=== PATIENT | male | born 1950 | race Caucasian/White ===

== ENCOUNTER 2017-09-14 09:18 | Inpatient (IN) | payer MEDICARE, MEDICAID ==
[~2017-09-14] VITALS: Ht 177.8 cm; Wt 81.3 kg
[2017-09-14] MEDS ORDERED: PROAIR HFA8.5 GM INH (09:25)
[2017-09-14] MEDS ORDERED: ACCUNEB SO1.25 MG/1 INH (09:25)
[2017-09-14 09:26] VITALS: BP 123/82
[2017-09-14] MEDS ORDERED: HYDROCODONE-AP1 EAC6 PO (09:26)
[2017-09-14] MEDS ORDERED: TRAMADOL 50 MG50 MG PO (09:36)
[2017-09-14] MEDS ORDERED: AMBIEN 5 MG TABL5 M1 PO (09:37)
[2017-09-14] MEDS ORDERED: AMITRIPTYLINE H25 M2 PO (09:37)
[2017-09-14 10:04] LABS: ABSOLUTE BASOPHILS 0.1 thou/uL (0.0-0.2); ABSOLUTE EOSINOPHILS 0.1 thou/uL (0.0-0.7); ABSOLUTE LYMPHOCYTES 1.2 thou/uL (0.8-5.3); ABSOLUTE MONOCYTES 0.5 thou/uL (0.0-1.2); ABSOLUTE NEUTROPHILS 3.9 thou/uL (1.6-8.1); BASOPHILS 1.1 %; EOSINOPHILS 2.4 %; HEMATOCRIT 45.2 % (42.0-52.0); HEMOGLOBIN 14.9 gm/dL (14.0-18.0); LYMPHOCYTES 20.8 %; MCH 29.4 pg (26.0-34.0); MCHC 32.9 g/dL (28.0-37.0); MCV 89.3 fL (80.0-100.0); MONOCYTES 8.8 %; MPV 8.4 fl. (7.2-11.1); NUCLEATED RBCS 0 /100WBC; PLATELET COUNT* 215 thou/uL (150-400); POLYS 66.9 %; RBC 5.06 mil/uL (4.50-6.00); RDW-CV 15.6 % (10.5-14.5); WBC 5.9 thou/uL (4.0-11.0)
[2017-09-14 10:11] LABS: ANION GAP 5 mmol/L (7-16); BUN 9 mg/dL (7-18); CALCIUM 8.7 mg/dL (8.5-10.1); CHLORIDE 98 mmol/L (98-107); CO2 34 mmol/L (21-32); CREATININE 0.9 mg/dL (0.6-1.3); GLUCOSE 118 mg/dL (70-99); POTASSIUM 4.4 mmol/L (3.5-5.1); SODIUM 137 mmol/L (136-145)
[2017-09-14 10:22] LABS: ALBUMIN 3.3 g/dL (3.4-5.0); ALKALINE PHOSPHATASE 77 U/L (46-116); NT-PRO BRAIN NAT PEPTIDE 145 pg/mL (<300); SGOT 18 U/L (15-37); SGPT 16 U/L (30-65); TOTAL BILIRUBIN 0.3 mg/dL (<0.1-1.0); TOTAL PROTEIN 7.4 g/dL (6.4-8.2); TROPONIN-I LEVEL <0.06 ng/mL (<0.06)
[2017-09-14 10:37] LABS: BE 5.2 mmol/L (-2 to +3); pH 7.378 (7.340-7.450)
[2017-09-14 10:39] LABS: PCO2 55.6 mmHg (35.0-45.0); PO2 55.1 mmHg (75.0-100.0)
[2017-09-14 11:57] LABS: URINE BILIRUBIN NEGATIVE (Negative); URINE BLOOD NEGATIVE (Negative); URINE CLARITY CLEAR; URINE COLOR YELLOW; URINE GLUCOSE-RANDOM NEGATIVE (Negative); URINE KETONES NEGATIVE (Negative); URINE LEUKOCYTES-REFLEX NEGATIVE (Negative); URINE NITRITE-REFLEX NEGATIVE (Negative); URINE PROTEIN NEGATIVE (Negative); URINE SPECIFIC GRAVITY <= 1.005 (1.005-1.030); URINE UROBILINOGEN 0.2 E.U./dl (0.2-1.0)
[2017-09-14 12:00] VITALS: BP 137/80
[2017-09-14 12:20] VITALS: BP 147/86
--- NOTE | 2017-09-14 13:04 | NUR ---
REPORT RECIEVED FROM JESSENIA FORREST IN ER OF EXPECTED TRANSFER AT 1150- DX: SOA,WITH COPD EXAC AND HYPOXIA-PT ARRIVED TO ROOM 204 VIA CART AT 1220- PT ASSISTED X1 TO BED- TEACHER INDUSTRIAL ARTS PLACED ORERED, TRACING SR- VS 97.8 20 147/86 89 94% ON 3L VIA NC- PT NOTED TO BE A&O X4 WITH FORGETFULLNESS- DIMINISHED COMPASISTY NOTED R/T SCHIZOPHERENIA DX- PT REPORTS TO LIVE WITH SISTER TIANA HELPS WITH CARES-COURSE LUNG SOUNDS NOTED WITH EXPIRATORY WHEEZING- PT REPORTS TO BE A DAILY PACK A DAY SMOKER- LABORED BREATHING NOTED AT TIMES- ABDOMEN SOFT/ROUND/NON-TENDER, BS X4 QUADS- PT REPORTS LAST BM 4--SKIN C/D/I- STATES TO HAVE GLASSES THAT ARE IN CAR, BUT DOES NOT WEAR THEM- STATES TO HAVE UPPER DENTURE AT HOME, BUT REPORTS TO NT BE WEARING- IV NOTED TO RIGHT HAND INTACT, IVF STARTED UPON ADMISSION PRESCIBED- IV ABT INFUSSING PRESCRIBED- PT DENIES ANY C/O PAIN/DISCOMFORT AT THIS TIME- CALL LIGHT AND PERSONAL BELONGINGS WITH IN REACH-BE ALARM IN PLACE AND WORKING FOR PT SAFETY- HOURLY ROUNDS IN PLACE R/T SAFETY/NEEDS- ALL NEEDS MET AT THIS TIME-WCTM
[2017-09-14 15:35] VITALS: BP 118/74
--- NOTE | 2017-09-14 16:34 | NUR ---
PT CURRENTLY RESTING IN BED, WATCHING TV- CSM CONSULTANT CONTINUED ORDERED, TRACING SR- IV TO RIGHT HAND CONTINUED WITH IVF INFUSING PRESCIBED, IV ABT GIVEN PRESCIBED, NO ADVERSE REATIONS TO NOTE- GOOD PO INTAKE NOTED WITH MEALS- TROPS REMAIN NEGATIVE- O2 TITRATED PER RT TO 2L VIA NC- TRAMADOL PER PT REQUEST SCHEDULED, NO PAIN REPORTED-ALL NEEDS MET AT THIS TIME-WCTM
--- NOTE | 2017-09-14 17:03 | EKG ---
[place] [address] ELECTROCARDIOGRAM REPORT Name: HUAN ABERNATHY Room: [address] ADM IN .R.#: [id number] Admission: 09/14/17 Attend Phys: Josué Jimenes MD Discharge: Date of : 50 Report #: [id number] THIS REPORT FOR: //name// [facility] ED Test Date: 2017-09-14 Test Time: 09:27:25 Pat Name: HUAN ABERNATHY Department: Room: [facility] Gender: M Union Organiser: Michael VELIZ : 1950 Requested By: Christine Parra Order Number: [id number] MD: Keyshawn Watts Measurements Intervals [place] Rate: 82 P: 74 PA: 160 QRS: -78 QRSD: 96 T: QT: 378 QTc: 442 Interpretive Statements Sinus rhythm Ventricular premature complex Abnormal R-wave progression, late transition Inferior infarct, old Abnormal lateral Q waves No previous ECG available for comparison Electronically Signed On 09-14-2017 17:03:42 CDT by Keyshawn Watts [email or web address] <ELECTRONICALLY SIGNED> By: Keyshawn Watts MD, FACC 09/14/17 1703 0927 0927 Keyshawn Watts MD, FAC /EPI
[2017-09-14 20:00] VITALS: BP 122/83
[2017-09-14 23:45] VITALS: BP 123/78
[2017-09-15 04:19] VITALS: BP 122/76
--- NOTE | 2017-09-15 05:20 | NUR ---
ASSUMED CARE OF PT AT 1930. NURSING ASSESSMENT COMPLETED AT START OF SHIFT. PT VOICED NO CONCERNS THIS SHIFT. PT TRACING SINUS RHYTHM ON CARE ASST. IV FLUIDS INFUSING. HOURLY ROUNDING COMPLETED, CALL LIGHT WITHIN REACH. NO FALLS THIS SHIFT.
[2017-09-15 05:45] LABS: HEMATOCRIT 39.2 % (42.0-52.0); MCH 29.2 pg (26.0-34.0); MCHC 33.1 g/dL (28.0-37.0); MCV 88.3 fL (80.0-100.0); MPV 8.8 fl. (7.2-11.1); NUCLEATED RBCS 0 /100WBC; PLATELET COUNT* 215 thou/uL (150-400); RBC 4.44 mil/uL (4.50-6.00); RDW-CV 15.6 % (10.5-14.5); WBC 9.6 thou/uL (4.0-11.0)
[2017-09-15 05:48] LABS: CALCIUM 8.3 mg/dL (8.5-10.1); CREATININE 0.9 mg/dL (0.6-1.3); POTASSIUM 4.7 mmol/L (3.5-5.1)
[2017-09-15 06:43] LABS: ABSOLUTE LYMPHOCYTES 0.3 thou/uL (0.8-5.3); ABSOLUTE MONOCYTES 0.1 thou/uL (0.0-1.2); ABSOLUTE NEUTROPHILS 9.2 thou/uL (1.6-8.1); PLATELET ESTIMATE ADEQUATE; POLYCHROMASIA 1+
[2017-09-15 08:06] VITALS: BP 120/73
--- NOTE | 2017-09-15 08:55 | NUR ---
ASSUMED CARE OF PT THIS AM AROUND 714- TURF KEEPER IN PLACE ORDERED, TRACING SR- UPON ASSESSMENT PT NOTED TO BE RESTING IN BED, EYES CLOSED- PT A&O X3- CONTINENT VS INCONTINENT OF BOWEL AND BLADDER- SBA WITH TRANSFERS FOR SAFETY- COURSE LUNG SOUNDS WITH EXPIRATORY WHEEZING NOTED- DYSPNEA NOTED ON EXERTION- VSS, O2 SAT 93% ON 2L VIA NC- ABDOMEN SOFT/ROUND/NON-TENER, BS X4 QUADS- LAST BM REPORTED X2 DAYS AGO- TACE EDEMA NOTED TO BLE- IV NOTED TO RIGHT HAND INTACT, IVF COMPLETED THIS AM- IV ABT GIVEN PRESCIBED- PT DENIES ANY C/O PAIN/DISCOMFORT AT THIS TIME- CALL LIGHT AND PERSONAL BELONGINGS WITH IN REACH- BED ALARM IN PLACE AND WORKING FOR PT SAFETY- HOURLY ROUNDS IN PLACE R/T SAFETY/NEEDS- ALL NEEDS MET AT THIS TIME-WCTM
[2017-09-15 11:37] VITALS: BP 132/73
[2017-09-15 15:05] VITALS: BP 130/67
--- NOTE | 2017-09-15 15:08 | NUR ---
Pt was sound asleep when CM went to assess, per nursing, Pt lives at home with his sister. Independent, but sister available to assist as needed. CM will attempt to assess later.
--- NOTE | 2017-09-15 17:04 | NUR ---
PT CURRENLTY RESTING IN BED, WATCHING TV- STATUS CHAGNED TO MS- IV TO RIGHT HAND INTACT CONTINUED INDICATED AND SL- GOOD PO INTAKE NOTED WITH MEALS- CULTURES REPORT NO GROWTH AT THIS TIME- PT DENIES ANY C/O PAIN/DISCOMFORT THIS SHIFT, SCHEDULED TRAMADOL HELD-O2 TITRATED TO 1L THIS SHIFT, O2 SAT 95-96%- CALL LIGHT AND PERSONAL BELONGINGS WITH IN REACH- BED ALARM IN PLACE AND WORKING FOR PT SAFETY- ALL NEEDS MET AT THIS TIME-WCTM
[2017-09-15 20:00] VITALS: BP 120/74
[2017-09-16 04:00] VITALS: BP 130/84
--- NOTE | 2017-09-16 04:25 | NUR ---
ASSUMED CARE OF PT AT 1914, PT VOICED NO CONCERNS, PT MED SURG STATUS, HOURLY ROUNDING COMPLETED, BARRIER OINTMENT APPLIED TO INNER THIGHS. DENIES PAIN THIS SHIFT. AT 314, PT O2 SAT IN THE MID 80'S. PT FOUND TO HAVE NC OFF. 2L NC APPLIED, PT O2 SAT 95%. NO FALLS THIS SHIFT, PT RESTING QUIETLY IN ROOM.
[2017-09-16 07:47] VITALS: BP 142/85
--- NOTE | 2017-09-16 08:30 | NUR ---
ASSUMED CARE OF PT THIS AM AROUND 714- MS STATUS MAINTAINED- UPON ASSESSMENT PT NOTED TO BE RESTING IN BED, WATCHING TV- PT A&O X4- CONTINENT OF BOWEL AND BLADDER- SBA WITH TRANSFERS FOR SAFETY- AUDIBLE WHEEZING NOTED WITH WET COUGH AND POOR COUGH EFFORT- VSS, O2 SAT 93% ON 1L VIA NC- LABORED BREATING AT REST NOTED AND WITH EXERTION- ABDOMEN FIRM/ROUND/NON-TENDER, BS X4 QUADS- PT REPORTS TO HAVE HAD BM 09/15/17- IV NOTED TO RIGHT HAND INTACT, IV ABT GIVEN PRESCIBED THIS AM- GOOD PO INTAKE NOTED THIS AM WITH BREAKFAST- PT DENIES ANY C/O PAIN/DISCOMFORT AT THIS TIME- CALL LIGHT AND PERSONAL BELONGINGS WITH IN REACH- HOURLY ROUNDS IN PLACE R/T SAFETY/NEEDS- ALL NEEDS MET AT THIS TIME-WCTM
[2017-09-16 09:25] VITALS: BP 142/85
[2017-09-16] MEDS ORDERED: VENTOLIN HFA 1818 GM INH (11:39)
[2017-09-16] MEDS ORDERED: PROTONIX40 M1 PO (11:40)
[2017-09-16] MEDS ORDERED: PREDNISONE 10 M10 MG PO (11:42)
[2017-09-16] MEDS ORDERED: CEFPODOXIME PR200 M1 PO (11:44)
--- NOTE | 2017-09-16 13:06 | NUR ---
ORDERS RECIEVED THIS SHIFT FOR OKAY TO [place] D/C HOME THIS SHIFT PER - IV TO RIGHT HAND D/C ALONG WITH TREE FELLER OPERATOR PRIOR TO D/C- D/C TEACHING/EDUCATION GIVEN TO PT WITH ALL QUESTIONS AND CONCERNS ADDRESSED AT TIME OF D/C- NEED FOR FOLLOW UP WITH PCP COMMUNICATED WITH VERBAL UNDERSTANDING RECIEVED PER PT- PT BELONGINGS PACKED AND ACCOUNTED FOR PER PT- PT CURRENLTY AWAITTING SISTER TO LCAC OPERATOR- ALL NEEDS MET AT THIS TIME-WCTM
[2018-02-12] MEDS ORDERED: OXYGEN MISCELL (14:12)
== END 2017-09-16 13:26 | disposition home or self-care (01) | DRG 177 ==
LOC: M.ERS 09:18 → M.TBA-ER 11:23 → M.2W 11:23
PROVIDERS: Personal Emergency Response Attendant; ADMIT Internal Medicine
DX: J15.6 Pneumonia due to other Gram-negative bacteria (principal); J44.0 Chronic obstructive pulmonary disease with (acute) lower respiratory infection; J96.21 Acute and chronic respiratory failure with hypoxia; J44.1 Chronic obstructive pulmonary disease with (acute) exacerbation; J20.9 Acute bronchitis, unspecified; G89.29 Other chronic pain; M25.559 Pain in unspecified hip; F17.210 Nicotine dependence, cigarettes, uncomplicated

== ENCOUNTER 2018-02-12 13:58 | Inpatient (IN) | payer MEDICARE, MEDICAID ==
[~2018-02-12] VITALS: Ht 180.3 cm; Wt 77.6 kg
[~2018-02-12 13:58] MED LIST: ACCUNEB SO1.25 MG/1 INH; AMBIEN 5 MG TABL5 M1 PO; AMITRIPTYLINE H25 M2 PO; CEFPODOXIME PR200 M1 PO; HYDROCODONE-AP1 EAC6 PO; PREDNISONE 10 M10 MG PO; PROAIR HFA8.5 GM INH; PROTONIX40 M1 PO; TRAMADOL 50 MG50 MG PO; VENTOLIN HFA 1818 GM INH
[2018-02-12 14:04] VITALS: BP 130/84
[2018-02-12] MEDS ORDERED: NORCO 10-325 T1 EACH PO (14:11)
[2018-02-12] MEDS ORDERED: OXYGEN MISCELL ×2 (14:12)
[2018-02-12] MEDS ORDERED: INVEGA SUS156 MG/1 M IM (14:13)
[2018-02-12 14:22] LABS: ABSOLUTE BASOPHILS 0.1 thou/uL (0.0-0.2); ABSOLUTE EOSINOPHILS 0.2 thou/uL (0.0-0.7); ABSOLUTE LYMPHOCYTES 1.7 thou/uL (0.8-5.3); ABSOLUTE MONOCYTES 0.6 thou/uL (0.0-1.2); ABSOLUTE NEUTROPHILS 4.1 thou/uL (1.6-8.1); EOSINOPHILS 2.3 %; HEMATOCRIT 44.2 % (42.0-52.0); HEMOGLOBIN 14.5 gm/dL (14.0-18.0); LYMPHOCYTES 25.6 %; MCH 29.6 pg (26.0-34.0); MCHC 32.9 g/dL (28.0-37.0); MCV 89.9 fL (80.0-100.0); MONOCYTES 8.6 %; MPV 8.2 fl. (7.2-11.1); NUCLEATED RBCS 0 /100WBC; PLATELET COUNT* 224 thou/uL (150-400); POLYS 62.5 %; RBC 4.92 mil/uL (4.50-6.00); RDW-CV 15.5 % (10.5-14.5); WBC 6.5 thou/uL (4.0-11.0)
[2018-02-12 14:33] LABS: APTT 26.3 Seconds (25.0-31.3); PROTIME 10.4 Seconds (9.20-11.50)
[2018-02-12 14:41] LABS: ANION GAP 3 mmol/L (7-16); BUN 10 mg/dL (7-18); CALCIUM 8.9 mg/dL (8.5-10.1); CHLORIDE 99 mmol/L (98-107); CO2 36 mmol/L (21-32); CREATININE 0.8 mg/dL (0.6-1.3); GLUCOSE 88 mg/dL (70-99); POTASSIUM 4.3 mmol/L (3.5-5.1); SODIUM 138 mmol/L (136-145)
[2018-02-12 14:55] LABS: ALBUMIN 3.3 g/dL (3.4-5.0); ALKALINE PHOSPHATASE 75 U/L (46-116); LIPASE 99 U/L (73-393); SGOT 18 U/L (15-37); SGPT 17 U/L (30-65); TOTAL BILIRUBIN 0.5 mg/dL (<0.1-1.0); TOTAL PROTEIN 7.6 g/dL (6.4-8.2); TROPONIN-I LEVEL <0.06 ng/mL (<0.06)
[2018-02-12 14:59] LABS: HCO3 29.4 mmol/L (22.0-26.0); PO2 88.4 mmHg (75.0-100.0); pH 7.369 (7.340-7.450)
[2018-02-12 15:02] LABS: PCO2 52.2 mmHg (35.0-45.0)
[2018-02-12] MEDS ORDERED: PREDNISONE 20 M20 M1 PO (16:13)
[2018-02-12] MEDS ORDERED: CEFUROXIME500 MG PO (16:13)
[2018-02-12 16:38] VITALS: BP 135/78
[2018-02-12 17:01] VITALS: BP 121/76
[2018-02-12 19:30] VITALS: BP 113/77
[2018-02-13] VITALS: BP 114/77
[2018-02-13 04:00] VITALS: BP 111/67
[2018-02-13 07:53] VITALS: BP 118/75
[2018-02-13 12:00] VITALS: BP 129/78
[2018-02-13 16:00] VITALS: BP 122/68
--- NOTE | 2018-02-13 17:01 | EKG ---
[place] [address] ELECTROCARDIOGRAM REPORT Name: HUAN ABERNATHY Room: [address] ADM IN .R.#: [id number] Admission: 02/12/18 Attend Phys: Nehemiah Bui, Discharge: Date of : 50 Report #: [id number] THIS REPORT FOR: //name// [facility] ED Test Date: 2018-02-12 Test Time: 14:15:23 Pat Name: HUAN ABERNATHY Department: Room: [facility] Gender: M Distance Learning Administrator: CLINT : 1950 Requested By: Christine Parra Order Number: [id number] MD: Keyshawn Watts Measurements Intervals [place] Rate: 81 P: 78 [place]: 164 QRS: 248 QRSD: 105 T: 86 QT: 373 QTc: 433 Interpretive Statements Sinus rhythm Probable left atrial enlargement Inferior infarct, old Minimal ST elevation, anterior leads Compared to ECG 09/14/2017 09:27:25 ST (T wave) deviation now present Ventricular premature complex(es) no longer present Q waves no longer present Myocardial infarct finding still present Electronically Signed On 02-13-2018 17:01:33 CDT by Keyshawn Watts [email or web address] <ELECTRONICALLY SIGNED> By: Keyshawn Watts MD, FACC 02/13/18 1701 1415 1415 Keyshawn Watts MD, FACC /EPI
[2018-02-13 20:03] VITALS: BP 116/78
[2018-02-14] VITALS (9 sets, daily range): BP systolic 126–155; BP diastolic 76–82
[2018-02-14 04:55] LABS: HEMATOCRIT 40.1 % (42.0-52.0); HEMOGLOBIN 12.9 gm/dL (14.0-18.0); MCH 28.9 pg (26.0-34.0); MCHC 32.2 g/dL (28.0-37.0); MCV 89.9 fL (80.0-100.0); MPV 8.9 fl. (7.2-11.1); RBC 4.46 mil/uL (4.50-6.00); RDW-CV 15.5 % (10.5-14.5); WBC 16.3 thou/uL (4.0-11.0)
[2018-02-14 05:28] LABS: CALCIUM 8.1 mg/dL (8.5-10.1); CREATININE 0.8 mg/dL (0.6-1.3); MAGNESIUM 1.8 mg/dL (1.8-2.4); POTASSIUM 4.9 mmol/L (3.5-5.1)
--- NOTE | 2018-02-14 10:59 | CON ---
[address] [address] CONSULTATION Name: HUAN ABERNATHY Room: [address] IN .R.#: [id number] Admission: 02/12/18 Attend Phys: Nehemiah Bui, Discharge: Date of : 50 Report #: [id number] THIS REPORT FOR: //name// CC: ALEJANDRA ANDERSON Physician staff Nehemiah Bui DATE OF SERVICE: 02/13/2018 PULMONARY CONSULTATION REFERRING PHYSICIAN: Nehemiah Bui MD CHIEF COMPLAINT: The patient is a 67-year-old male who presented to the Emergency Room yesterday complaining of shortness of breath, abdominal pain. He was evaluated and then admitted to the hospital. Despite his shortness of breath condition and a history of tobacco abuse, he continues to smoke. He is on oxygen therapy, but has been noncompliant. Today, he states that he is not short of breath, not having any abdominal distress, states that he wants to go home. He is denying cough, phlegm production, fever, chills, nausea or vomiting. PAST MEDICAL HISTORY: Significant for COPD, chronic thought disorder, chronic hip pain. SOCIAL HISTORY: He lives with his sister. Continues to smoke about a pack of cigarettes per day. Uses oxygen intermittently at home. REVIEW OF SYSTEMS: System review negative other than what is outlined above. SOCIAL HISTORY: As mentioned. FAMILY HISTORY: Noncontributory. CURRENT MEDICATIONS: He is on Solu-Medrol, Protonix, budesonide, aerosol treatments, Zosyn, Nicoderm patch, DuoNeb aerosol treatments. PHYSICAL EXAMINATION: VITAL SIGNS: Blood pressure 129/78, respiratory rate of 18, pulse rate 95 and regular, temperature 97 degrees. Weight is recorded at 171 pounds. GENERAL APPEARANCE: Awake, alert, oriented. His respirations are nonlabored. HEAD: Atraumatic. EYES: Pupils are round, equal, reactive. ORAL CAVITY: [place] [address] CONSULTATION Name: HUAN ABERNATHY Room: [address]#: [id number] Admission: 02/12/18 Attend Phys: Nehemiah Bui, Discharge: Date of : 50 Report #: [id number] NECK: No adenopathy. CHEST: Reveals good breath sounds. No audible wheezes, rales or rhonchi today. Good symmetrical expansion. CARDIOVASCULAR: In the supine position, regular rhythm, no audible S3 or S4. S1 and S2 appear normal. ABDOMEN: Soft, without organomegaly. EXTREMITIES: Negative for edema. No evidence of clubbing. SKIN: Warm and dry without rash or tattoos. NEUROLOGIC: He is able to move all 4 extremities spontaneously and on command as well as purposefully. He did not demonstrate any lateralizing signs. MEDICAL IMAGING STUDIES: Chest x-ray without acute infiltrates or mass effect. LABORATORY DATA: An arterial blood gas obtained on admission reveals a pH of 7.37, pCO2 of 52, pO2 of 88, bicarbonate 29 on 4 liters. This was obtained yesterday on 02/12/2018 while in the Emergency Room. His hemoglobin and hematocrit of 14.5 and 44, white count 6500. Electrolytes: Sodium 138, potassium 4.3, chloride 99, CO2 of 36, BUN of 10, creatinine 0.8. ASSESSMENT: 1. Exacerbation of his chronic obstructive airways disease. 2. Chronic hypercapnia. 3. Psychiatric disorder, unclear as to the exact type. 4. Noncompliance at home. 5. Tobacco abuse. RECOMMENDATIONS: Repeat arterial blood gas will be obtained. The patient will be continued on the current bronchodilator therapy as already outlined. After evaluation tomorrow, he may be a candidate being switched to oral prednisone taper. The patient will require better control of his smoking habit in an attempt to get off the cigarettes completely. Outpatient pulmonary function studies would be helpful to determine the severity of his chronic obstructive pulmonary disease. I do not see a need for Trilogy or BiPAP therapy at this time. <ELECTRONICALLY SIGNED> By: Davis Marie MD 02/14/18 1059 1313 CrysAltam Marie MD /nt
[2018-02-14 13:36] LABS: BE 2.3 mmol/L (-2 to +3); HCO3 28.4 mmol/L (22.0-26.0); PO2 91.5 mmHg (75.0-100.0); pH 7.371 (7.340-7.450)
[2018-02-14 13:39] LABS: PCO2 50.2 mmHg (35.0-45.0)
[2018-02-14] MEDS ORDERED: PREDNISONE 20 M20 MG PO (16:03)
[2018-02-14] MEDS ORDERED: PANTOPRAZOLE SO40 M1 PO (16:03)
[2018-02-14] MEDS ORDERED: CEFDINIR300 MG PO (16:04)
== END 2018-02-14 17:01 | disposition home or self-care (01) | DRG 189 ==
LOC: M.ERS 13:58 → M.2W 16:15 → M.TBA-ER 16:15 → M.2W 16:47
PROVIDERS: Internal Medicine Pulmonary Disease; Nurse Practitioner Family; Personal Emergency Response Attendant; ADMIT Family Medicine
DX: J96.01 Acute respiratory failure with hypoxia (principal); J44.1 Chronic obstructive pulmonary disease with (acute) exacerbation; G89.29 Other chronic pain; M25.559 Pain in unspecified hip; F12.90 Cannabis use, unspecified, uncomplicated; F17.210 Nicotine dependence, cigarettes, uncomplicated; F99 Mental disorder, not otherwise specified; J96.02 Acute respiratory failure with hypercapnia; Z91.19 Patient's noncompliance with other medical treatment and regimen; Z83.6 Family history of other diseases of the respiratory system; Z79.899 Other long term (current) drug therapy

== ENCOUNTER 2018-04-10 18:06 | Inpatient (IN) | payer MEDICARE, MEDICAID ==
[~2018-04-10] VITALS: Ht 180.3 cm; Wt 79.8 kg
[~2018-04-10 18:06] MED LIST changes: +CEFDINIR300 MG PO; +CEFUROXIME500 MG PO; +INVEGA SUS156 MG/1 M IM; +NORCO 10-325 T1 EACH PO; +OXYGEN MISCELL; +PANTOPRAZOLE SO40 M1 PO; +PREDNISONE 20 M20 M1 PO; +PREDNISONE 20 M20 MG PO
[2018-04-10 18:11] VITALS: BP 127/81
[2018-04-10 18:33] LABS: ABSOLUTE BASOPHILS 0.1 thou/uL (0.0-0.2); ABSOLUTE EOSINOPHILS 0.1 thou/uL (0.0-0.7); ABSOLUTE LYMPHOCYTES 1.1 thou/uL (0.8-5.3); ABSOLUTE MONOCYTES 0.9 thou/uL (0.0-1.2); ABSOLUTE NEUTROPHILS 8.2 thou/uL (1.6-8.1); BASOPHILS 0.6 %; EOSINOPHILS 0.6 %; HEMATOCRIT 43.7 % (42.0-52.0); HEMOGLOBIN 14.1 gm/dL (14.0-18.0); LYMPHOCYTES 10.7 %; MCH 27.7 pg (26.0-34.0); MCHC 32.3 g/dL (28.0-37.0); MCV 85.8 fL (80.0-100.0); MONOCYTES 8.9 %; NUCLEATED RBCS 1 /100WBC; PLATELET COUNT* 366 thou/uL (150-400); POLYS 79.2 %; RBC 5.09 mil/uL (4.50-6.00); RDW-CV 15.7 % (10.5-14.5); WBC 10.4 thou/uL (4.0-11.0)
[2018-04-10 18:47] LABS: ANION GAP 0 mmol/L (7-16); BUN 11 mg/dL (7-18); CALCIUM 8.1 mg/dL (8.5-10.1); CHLORIDE 88 mmol/L (98-107); CO2 37 mmol/L (21-32); CREATININE 0.8 mg/dL (0.6-1.3); GLUCOSE 122 mg/dL (70-99); POTASSIUM 4.4 mmol/L (3.5-5.1); SODIUM 125 mmol/L (136-145)
[2018-04-10 18:51] LABS: ALBUMIN 2.8 g/dL (3.4-5.0); ALKALINE PHOSPHATASE 98 U/L (46-116); LIPASE 103 U/L (73-393); MAGNESIUM 1.6 mg/dL (1.8-2.4); NT-PRO BRAIN NAT PEPTIDE 5076 pg/mL (<300); SGOT 25 U/L (15-37); SGPT 61 U/L (30-65); TOTAL BILIRUBIN 0.5 mg/dL (<0.1-1.0); TROPONIN-I LEVEL <0.06 ng/mL (<0.06)
[2018-04-10 19:39] LABS: BE 8.9 mmol/L (-2 to +3); HCO3 38.4 mmol/L (22.0-26.0); PO2 111.5 mmHg (75.0-100.0); pH 7.307 (7.340-7.450)
[2018-04-10 19:41] LABS: PCO2 78.6 mmHg (35.0-45.0)
[2018-04-10 21:28] VITALS: BP 112/74
[2018-04-10 22:00] VITALS: BP 115/83
[2018-04-11] VITALS: BP 115/77
--- NOTE | 2018-04-11 01:10 | NUR ---
RECEIVED REPORT FROM TRAFFIC CHECKERJESSENIA LABOY AT 2123. PT ARRIVED TO UNIT VIA CART AND BIPAP AT 2149. SISTER AT BEDSIDE, EQUIPMENT LEAD IN PLACE, TRACING SR. NEGATIVE FOR SEPSIS SCREENING. FALL PRECAUTIONS IN PLACE, CALL LIGHT WITHIN REACH. PT VOICED NO CONCERNS, ON BIPAP, VERY DROWSY, BUT EASILY AROUSABLE.
[2018-04-11 04:00] VITALS: BP 122/84
[2018-04-11 06:10] LABS: HEMATOCRIT 42.2 % (42.0-52.0); HEMOGLOBIN 13.4 gm/dL (14.0-18.0); MCH 27.6 pg (26.0-34.0); MCHC 31.7 g/dL (28.0-37.0); MCV 86.9 fL (80.0-100.0); MPV 7.9 fl. (7.2-11.1); NUCLEATED RBCS 1 /100WBC; PLATELET COUNT* 303 thou/uL (150-400); RBC 4.86 mil/uL (4.50-6.00); RDW-CV 15.8 % (10.5-14.5); WBC 8.1 thou/uL (4.0-11.0)
[2018-04-11 06:34] LABS: ALBUMIN 2.4 g/dL (3.4-5.0); ALKALINE PHOSPHATASE 79 U/L (46-116); ANION GAP < 0 mmol/L (7-16); BUN 9 mg/dL (7-18); CALCIUM 7.9 mg/dL (8.5-10.1); CHLORIDE 94 mmol/L (98-107); CO2 38 mmol/L (21-32); CREATININE 0.7 mg/dL (0.6-1.3); GLUCOSE 131 mg/dL (70-99); SGOT 18 U/L (15-37); SGPT 46 U/L (30-65); SODIUM 131 mmol/L (136-145); TOTAL BILIRUBIN 0.4 mg/dL (<0.1-1.0); TOTAL PROTEIN 6.1 g/dL (6.4-8.2)
[2018-04-11 07:30] LABS: ABSOLUTE EOSINOPHILS 0.1 thou/uL (0.0-0.7); ABSOLUTE LYMPHOCYTES 0.2 thou/uL (0.8-5.3); ABSOLUTE MONOCYTES 0.2 thou/uL (0.0-1.2); ABSOLUTE NEUTROPHILS 7.6 thou/uL (1.6-8.1); GIANT PLATELETS FEW; METAMYELOCYTES 2 %; PLATELET ESTIMATE ADEQUATE
[2018-04-11 07:31] LABS: ANISOCYTOSIS 1+
[2018-04-11 07:32] LABS: MICROCYTES 1+
[2018-04-11 08:00] VITALS: BP 94/53
--- NOTE | 2018-04-11 12:01 | NUR ---
ASSUMED CARE OF PATIENT THIS AM AT 0730. PATIENT IS DROWSY AND SLEEPY THIS AM. HE CONTINUES ON BIPAP THIS AM. HIS 02 SAT WAS LOW AT 89 TO 90% ON BIPAP. IN TO ROUND AND ORDERS GIVEN TO CHANGE O2 TO 3 LITERS NC. BREAKFAST ORDERED FOR PATIENT AND PATIENT ATE 100%. PATIENT HAD A DECREASE OF O2 SAT TO THE 70S. PATIENT PLACED BACK ON BIPAP. DR CASTANO PAGED AND NOTIFIED. UDS SENT TO LAB. WILL CONTINUE TO MONITOR O2 SATS. TELE SHOWS NSR.
[2018-04-11 12:15] VITALS: BP 107/65
[2018-04-11 12:22] LABS: URINE BILIRUBIN NEGATIVE (Negative); URINE BLOOD NEGATIVE (Negative); URINE CLARITY CLEAR; URINE COLOR YELLOW; URINE GLUCOSE-RANDOM NEGATIVE (Negative); URINE KETONES NEGATIVE (Negative); URINE LEUKOCYTES-REFLEX NEGATIVE (Negative); URINE NITRITE-REFLEX NEGATIVE (Negative); URINE PROTEIN NEGATIVE (Negative)
--- NOTE | 2018-04-11 15:48 | NUR ---
Pt is A&O. Resides at home with his sister. Pt is independent with ADLs, states that he continues to drive, but stated that his sister does most of the cooking and cleaning. Pt wears home, unsure of his DME provider. No hx of HH or SNF. Pt's goal is to return home at al. Following.
[2018-04-11 16:10] LABS: AMP/METHAMP Negative (Negative); BARBITURATES Negative (Negative); BENZODIAZEPINES Negative (Negative); COCAINE Negative (Negative); METHADONE Negative (Negative); OPIATES Negative (Negative); PCP Negative (Negative); THC Negative (Negative)
[2018-04-11 16:18] VITALS: BP 116/67
--- NOTE | 2018-04-11 16:51 | 2DMMODE ---
[place] [address] 2 D/M-MODE ECHOCARDIOGRAM Name: HUAN ABERNATHY Room: [address] IN [facility]#: [id number] Admission: 04/10/18 Attend Phys: Josué Jimenes, Discharge: Date of : 50 Date of Service: 04/11/18 1651 Report #: [id number] THIS REPORT FOR: //name// APPROVED REPORT Study performed: 04/11/2018 11:01:40 EXAM: Comprehensive 2D, Doppler, and color-flow Echocardiogram Patient Location: In-Patient Room #: 200 Status: routine BSA: 2.02 HR: 98 bpm BP: 122/84 mmHg Rhythm: NSR Other Information Study Quality: Good Indications Dyspnea 2D Dimensions IVSd: 10.41 (7-11mm) LVOT Diam: 20.28 (18-24mm) LVDd: 60.34 mm PWd: 8.77 (7-11mm) LVDs: 51.68 (25-40mm) Aortic Root: 28.55 mm Volumes Left Atrial Volume (Systole) LA ESV Index: 27.60 mL/m2 Aortic Valve AoV Peak Jonnie.: 1.43 m/s AO Peak Gr.: 8.18 mmHg LVOT Max P.14 mmHg AO Mean Gr.: 5.04 mmHg LVOT Mean P.97 mmHg LVOT Max V: 1.02 m/s AO V2 VTI: 26.88 cm LVOT Mean V: 0.64 m/s MAC (VTI): 2.32 cm2 LVOT V1 VTI: 19.30 cm Mitral Valve E/A Ratio: 0.67 MV Decel. Time: 153.32 ms MV E Max Jonnie.: 0.76 m/[place] [address] 2 D/M-MODE ECHOCARDIOGRAM Name: HUAN ABERNATHY Room: [address] IN ..#: [id number] Admission: 04/10/18 Attend Phys: Josué Jimenes, Discharge: Date of : 50 Date of Service: 04/11/18 1651 Report #: [id number] MV PHT: 44.46 ms MVA (PHT): 4.95 cm2 TDI E/Lateral E': 5.85 E/Medial E': 5.85 Medial E' Jonnie.: 0.13 m/s Lateral E' Jonnie.: 0.13 m/s Pulmonary Valve PV Peak Jonnie.: 0.98 m/s PV Peak Gr.: 3.87 mmHg Tricuspid Valve RAP Estimate: 5.00 mmHg TR Peak Gr.: 38.10 mmHg RVSP: 43.00 mmHg PA Pressure: 43.00 mmHg Left Ventricle The left ventricle is normal size. Regional wall motion abnormalities are noted with inferobasilar and high lateral dispropotionate hypokinesis. There is normal left ventricular wall thickness. Left ventricular systolic function is moderately decreased. LVEF is 35%. Grade I - abnormal relaxation pattern. Right Ventricle Right ventricle is borderline dilated. The right ventricular systolic function is normal. Atria The left atrium size is normal. The right atrium size is normal. Aortic Valve Mild aortic valve sclerosis. No aortic regurgitation is present. There is no aortic valvular stenosis. Mitral Valve The mitral valve is normal in structure. Trace mitral regurgitation. No evidence of mitral valve stenosis. Tricuspid Valve The tricuspid valve is normal in structure. Trace tricuspid regurgitation. Moderate pulmonary hypertension. Pulmonic Valve The pulmonary valve is normal in structure. There is no pulmonic [place] [address] 2 D/M-MODE ECHOCARDIOGRAM Name: HUAN ABERNATHY Room: [address] IN [facility]#: [id number] Admission: 04/10/18 Attend Phys: Josué Jimenes, Discharge: Date of : 50 Date of Service: 04/11/18 1651 Report #: [id number] Great Vessels The aortic root is normal in size. IVC is dilated and collapses <50% with inspiration. Pericardium There is no pericardial effusion. <Conclusion> The left ventricle is normal size. There is normal left ventricular wall thickness. Left ventricular systolic function is moderately decreased. LVEF is 35%. Grade I - abnormal relaxation pattern. Right ventricle is borderline dilated. The left atrium size is normal. Mild aortic valve sclerosis. No aortic regurgitation is present. There is no aortic valvular stenosis. The mitral valve is normal in structure. IVC is dilated and collapses <50% with inspiration. There is no pericardial effusion. Regional wall motion abnormalities are noted with inferobasilar and high lateral dispropotionate hypokinesis. <ELECTRONICALLY SIGNED> By: Neil Gasca MD, FACC 04/11/181650 50 50 Neil Gasca MD, FACC /INF
[2018-04-11 19:30] VITALS: BP 123/75
[2018-04-12] VITALS: BP 130/78
[2018-04-12 04:00] VITALS: BP 119/65
--- NOTE | 2018-04-12 05:18 | NUR ---
RECIEVED REPORT AND ASSUMED CARE AT 1900. VITAL SIGNS WERE STABLE. OXYGEN LEVEL WAS 85% ON 2L NC APPLIED BIPAP AND OXYGEN LEVEL WENT INTO THE 90'S. ASSESSMENT COMPLETE AND DISCUSSED PLAN OF CARE AND PT UNDERSTANDS. PT DENIES ANY PAIN. BED LOCKED, ALARM ON AND CALL LIGHT WITHIN REACH. HOURLY ROUNDING DONE AND ALL NEEDS MET. NURSING WILL CONTINUE TO MONITOR. PT TAKES BIPAP ON AND OFF THROUGHOUT THE NIGHT AND DURING THE DAY.
[2018-04-12 05:27] LABS: ABSOLUTE LYMPHOCYTES 0.2 thou/uL (0.8-5.3); ABSOLUTE MONOCYTES 0.6 thou/uL (0.0-1.2); ABSOLUTE NEUTROPHILS 11.1 thou/uL (1.6-8.1); BASOPHILS 0.1 %; HEMATOCRIT 39.3 % (42.0-52.0); HEMOGLOBIN 12.6 gm/dL (14.0-18.0); MCH 27.7 pg (26.0-34.0); MCV 86.8 fL (80.0-100.0); MONOCYTES 4.8 %; NUCLEATED RBCS 0 /100WBC; PLATELET COUNT* 328 thou/uL (150-400); POLYS 93.1 %; RBC 4.53 mil/uL (4.50-6.00); RDW-CV 15.3 % (10.5-14.5); WBC 11.9 thou/uL (4.0-11.0)
[2018-04-12 05:47] LABS: ALBUMIN 2.4 g/dL (3.4-5.0); CALCIUM 8.4 mg/dL (8.5-10.1); POTASSIUM 5.2 mmol/L (3.5-5.1); TOTAL BILIRUBIN 0.3 mg/dL (<0.1-1.0); TOTAL PROTEIN 6.1 g/dL (6.4-8.2)
[2018-04-12 05:48] LABS: PREALBUMIN 14.3 mg/dL (18.0-35.7)
[2018-04-12 07:30] VITALS: BP 121/75
[2018-04-12 09:25] LABS: BE 11.3 mmol/L (-2 to +3); PCO2 80.2 mmHg (35.0-45.0); PO2 72.4 mmHg (75.0-100.0); pH 7.324 (7.340-7.450)
[2018-04-12 09:26] LABS: HCO3 40.8 mmol/L (22.0-26.0)
[2018-04-12] MEDS ORDERED: NORCO 7.5-3251 EACH PO (10:51)
--- NOTE | 2018-04-12 11:11 | EKG ---
[place] [address] ELECTROCARDIOGRAM REPORT Name: HUAN ABERNATHY Room: [address] ADM IN ..#: [id number] Admission: 04/10/18 Attend Phys: Josué Jimenes MD Discharge: Date of : 50 Report #: [id number] THIS REPORT FOR: //name// [facility] ED Test Date: 2018-04-10 Test Time: 18:22:01 Pat Name: HUAN ABERNATHY Department: Room: [facility] Gender: Mate First: Michael ADAM : 1950 Requested By: Nicolas Bowman Order Number: [id number] MD: Felton Head Measurements Intervals [place] Rate: 99 P: 78 [place]: 151 QRS: 126 QRSD: 106 T: -58 QT: 338 QTc: 434 Interpretive Statements Sinus rhythm Inferior infarct, age indeterminate Compared to ECG 02/12/2018 14:15:23 ST (T wave) deviation no longer present Myocardial infarct finding still present Electronically Signed On 04-12-2018 11:11:14 BOILERMAKER by Fetlon Head [email or web address] <ELECTRONICALLY SIGNED> By: Felton Head MD, FACC 04/12/18 1111 182 182 Felton Head MD, FAC /EPI
[2018-04-12 11:24] VITALS: BP 128/78
--- NOTE | 2018-04-12 11:37 | NUR ---
RECEIVED PT CARE 0700. HE IS ALERT AND ORIENTED X3. FORGETFUL AT TIMES. VSS. MAYONNAISE MIXER TRACING SR. HE DENIES PAIN. O2 SAT 91% ON 4L NC. VOIDING CLEAR YELLOW URINE PER URINAL. AM ASSESSMENT CHARTED. MEDS PER MAR. UPDATED THE PATIENTS SISTER DEENA ON PLAN OF CARE AND PATIENTS STATUS. BED ALARM ON. CALL LIGHT WITHIN REACH. WILL CONTINUE TO MONITOR.
--- NOTE | 2018-04-12 13:26 | CON ---
[address] [address] CONSULTATION Name: HUAN ABERNATHY Room: [address] IN M.R.#: [id number] Admission: 04/10/18 Attend Phys: Josué Jimenes MD Discharge: Date of : 50 Report #: [id number] THIS REPORT FOR: //name// CC: Josué Jimenes [facility] physician/PCP REASON FOR CONSULTATION: Respiratory failure. HISTORY OF PRESENT ILLNESS: This is a 67-year-old male patient with a background history of schizophrenia and apparently he is on chronic pain medication at home. He is actively smoker. He carries a diagnosis of COPD. He was admitted to the hospital last night with change in mental status and respiratory distress. Apparently, he was in distress when he presented to the ER. He was placed on BiPAP according to the records, he was not responsive also. He was found to have hypercapnic respiratory failure. When I saw him this morning, he was on BiPAP, although it is difficulty to understand him through the BiPAP mask, but he was able to tell me he is [facility]. He was able to tell me the mask actually helped his breathing, but he thinks he might be able to try to see how he does off BiPAP. He had some trouble breathing over several days and apparently was reluctant to come to the hospital. He was drowsy and lethargic. He had no nausea, no vomiting, but he had some cough with occasional sputum production. He had no fever, no chills. He was able to converse with me. He denied any sick contacts. ALLERGIES: No known drug allergies. HOME MEDICATIONS: He is on albuterol. He is on oxygen, which he is noncompliant with per the record. He is on antipsychotics Also, apparently he is on some form of pain medication. According to the records, he is on [place] PAST MEDICAL HISTORY: Chronic respiratory failure, COPD on oxygen at home, noncompliant, history of schizophrenia, history of chronic hip pain. PAST SURGICAL HISTORY: No major chest surgery. FAMILY HISTORY: Reviewed and not pertinent to the chief complaint. SOCIAL HISTORY: He smokes 1 pack of cigarettes per day. No mention of history of alcohol use, no drug abuse per history. REVIEW OF SYSTEMS: CONSTITUTIONAL: He denied fever, weight loss. He reported some weakness. EYES: He denied any vision changes, redness, cataract, limitation, floaters. Ear, nose and throat: HE denied hearing difficulty, discharge, tinnitus, dizziness, epistaxis, postnasal drip, sinus pain, hoarseness, [place] [address] CONSULTATION Name: HUAN ABERNATHY Room: [address] IN ..#: [id number] Admission: 04/10/18 Attend Phys: Josué Jimenes MD Discharge: Date of : 50 Report #: [id number]. CARDIOVASCULAR: He denied any chest pain, palpitation. He had some lower extremity edema. GASTROENTEROLOGY: He denied change in appetite, nausea, vomiting, bleeding from any orifice, constipation, or diarrhea. GENITOURINARY: He denied frequency, urgency, painful urination, hematuria or incontinence. MUSCULOSKELETAL: He denied any joint pain, stiffness, back pain, muscle pain, swelling, difficulty walking. SKIN: He denied rash, lesions eczema, psoriasis, hair loss. NEUROLOGIC: Apparently when he came in, he was confused, but today he is more with it. He is moving all 4 extremities. He has psychiatric disorder. PSYCHIATRIC: He has history of schizophrenia. ENDOCRINE: He denied heat or cold intolerance. He denied night sweats or hot flashes. HEMATOLOGIC: He denied easy bruisability, swollen glands, bleeding tendency. The rest of the review of system was negative. PHYSICAL EXAMINATION: VITAL SIGNS: Temperature is 36.4. His blood pressure is 122/84, pulse rate of 85, sinus breathing around 20 times per minute with the BiPAP mask with saturation 94%. HEENT: Normocephalic, atraumatic. Pupils reactive to light. Not pale, not jaundiced. External ear looks healthy and normal. BiPAP mask in place, I did not take it off. I did not examine the oral cavity. NECK: Supple. No palpable lymph node. No palpable thyroid. Trachea is central. CHEST: Diminished air movement bilaterally with rhonchi and wheezes heard bilaterally, both in inspiratory and expiratory phase, symmetrical expansion. No tenderness. HEART: S1, S2. No murmur, no gallop. ABDOMEN: Benign, soft, lax, nontender, positive bowel sounds. EXTREMITIES: Lower extremity, trace to +1 edema, equal bilaterally. No calf tenderness. NEUROLOGICAL: Moving 4 extremities spontaneously. No focal weakness, seems to be more awake compared to yesterday. PSYCHIATRIC: Mood and affect difficult to evaluate due to the BiPAP mask in place. SKIN: No rash. LYMPHATICS: No palpable lymph nodes. LABORATORY DATA: White blood count is 10.4, hemoglobin 14.1, platelets 366. ABGs 7.30/78/111 and this was done on BiPAP. Creatinine 0.7, chloride 94, sodium 131, bicarbonate 38. His chest x-ray did not show acute infiltrate. CTA chest, although negative for [address] [address] CONSULTATION Name: HUAN ABERNATHY Michael Room: [address] IN M.R.#: [id number] Admission: 04/10/18 Attend Phys: Josué Jimenes MD Discharge: Date of : 50 Report #: [id number] PE, but showed bronchiectatic changes and mucous plugging at the basal lobes, area of infiltrate in the right upper lobe nodular. IMPRESSION: 1. Acute hypercapnic and hypoxic respiratory failure. 2. Chronic obstructive pulmonary disease exacerbation. 3. Bronchiectasis. 4. Change in mental status. 5. Schizophrenia. 6. Chronic narcotic dependence at home. PLAN: At this point, the patient will be continued on IV steroids. Schedule nebulization treatment. We will need to monitor his ABGs. I agree with antibiotic, especially with the finding of the CT scan. He will be on the scheduled bronchodilator as mentioned above. We will try to get him breaks off BiPAP to see how he does with the goal of O2 saturation to remain more than 90%. If he tolerates coming off BiPAP to nasal cannula, I think we can start feeding him. However, the BiPAP needs to be done during sleep and p.r.n. We will do a followup ABGs on him. Thank you for the consult. We will follow along with you. <ELECTRONICALLY SIGNED> By: Karolina Negro MD 04/12/18 1326 0858 MD delvis Paige
--- NOTE | 2018-04-12 15:57 | NUR ---
PATIENT RESTING IN BED. BIPAP IN PLACE AND PATINET IS ONLY TO BE OFF BIPAP FOR 30 MINUTES AT A TIME. LYNDSEY MCDANIELS AGREED TO THIS. AOX4 AND COMFORTABLE. VITAL SIGNS STABEL AND PAATIET IN NO APPARENT SIGNS OF DISTRESS. HOURLY ROUNDING COMPLETED FOR PATIENT SAFETY.
[2018-04-12 15:59] VITALS: BP 124/76
[2018-04-12 19:30] VITALS: BP 125/82
[2018-04-13] VITALS: BP 126/69
--- NOTE | 2018-04-13 03:51 | NUR ---
RECIEVED REPORT AND ASSUMED CARE AT 1900. VITALS WERE STABLE. PT UP WITH STAND BY ASSIST. ASSESSMENT COMPLETED AND DISCUSSED PLAN OF CARE WITH PT AND HE UNDERSTANDS. PT ON 4L NC AND HAS BIPAP THROUGHOUT THE DAY AND NIGHT OFF AND ON. BED LOCK, ALARM ON AND CALL LIGHT WITHIN REACH. HOURLY ROUNDING DONE AND ALL NEEDS MET. NURSING WILL CONTINUE TO MONITOR.
[2018-04-13 04:00] VITALS: BP 124/78
[2018-04-13 05:50] LABS: ABSOLUTE LYMPHOCYTES 0.3 thou/uL (0.8-5.3); ABSOLUTE MONOCYTES 0.5 thou/uL (0.0-1.2); ABSOLUTE NEUTROPHILS 14.8 thou/uL (1.6-8.1); BASOPHILS 0.2 %; HEMOGLOBIN 12.3 gm/dL (14.0-18.0); LYMPHOCYTES 2.2 %; MCHC 30.8 g/dL (28.0-37.0); MCV 87.7 fL (80.0-100.0); MPV 7.6 fl. (7.2-11.1); NUCLEATED RBCS 0 /100WBC; PLATELET COUNT* 319 thou/uL (150-400); POLYS 94.6 %; RBC 4.56 mil/uL (4.50-6.00); RDW-CV 16.2 % (10.5-14.5); WBC 15.7 thou/uL (4.0-11.0)
[2018-04-13 06:11] LABS: ANION GAP < 0 mmol/L (7-16); BUN 16 mg/dL (7-18); CALCIUM 8.5 mg/dL (8.5-10.1); CHLORIDE 95 mmol/L (98-107); CO2 44 mmol/L (21-32); CREATININE 0.9 mg/dL (0.6-1.3); GLUCOSE 154 mg/dL (70-99); NT-PRO BRAIN NAT PEPTIDE 1119 pg/mL (<300); POTASSIUM 5.5 mmol/L (3.5-5.1); SODIUM 137 mmol/L (136-145)
[2018-04-13 06:13] LABS: PREALBUMIN 17.6 mg/dL (18.0-35.7)
[2018-04-13 07:30] VITALS: BP 129/81
[2018-04-13 12:00] VITALS: BP 129/69
--- NOTE | 2018-04-13 12:00 | NUR ---
RECEIVED PT CARE 0700. HE IS SLEEPING, DIFFICULT TO ARROUSE. OPENS EYES TO STERNAL RUB. VSS. 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 ONCE AWAKE, HE IS ORIENTED X4. FORGETFUL AT TIMES. AM ASSESSMENT CHARTED. MEDS GIVEN PER MAR. UP STANDBY ASSIST. VOIDS PER URINAL OR AMBULATES TO RESTROOM. DISCUSSED PLAN OF CARE WITH THE PATIENTS SISTER. THE SISTER WAS ABLE TO TELL ME WHICH MENTAL HEALTH FACILITY HE GOES TO AND THE EMPLOYEES OF [facility] WERE ABLE TO COMMUNICATE WHICH PSYCHIATRIC MEDICATION THIS PATIENT GETS A MONTHLY INJECTION OF. HOME MEDICATIONS UPDATED. CALL LIGHT WITHIN REACH. WILL CONTINUE TO MONITOR.
[2018-04-13 15:43] VITALS: BP 115/71
[2018-04-13 19:30] VITALS: BP 125/77
[2018-04-14] VITALS: BP 129/72
--- NOTE | 2018-04-14 03:45 | NUR ---
RECIEVED REPORT AND ASSUMED CARE AT 1900. VITAL SIGNS STABLE. PT UP WITH STANDBY ASSIST. ASSESSMENT COMPLETED AND DISCUSSED PLAN OF CARE AND PT UNDERSTANDS. PT ON 4L NC AND BIPAP AT HS. PT DENIES ANY PAIN. BED LOCKED, ALARM ON AND CALL LIGHT WITHIN REACH. HOURLY ROUNDING DONE AND ALL NEEDS MET. NURSING WILL CONTINUE TO MONITOR.
[2018-04-14 04:00] VITALS: BP 134/81
[2018-04-14 04:34] LABS: ABSOLUTE LYMPHOCYTES 0.3 thou/uL (0.8-5.3); ABSOLUTE MONOCYTES 0.2 thou/uL (0.0-1.2); ABSOLUTE NEUTROPHILS 12.4 thou/uL (1.6-8.1); BASOPHILS 0.1 %; HEMATOCRIT 39.1 % (42.0-52.0); HEMOGLOBIN 12.1 gm/dL (14.0-18.0); LYMPHOCYTES 2.1 %; MCV 87.1 fL (80.0-100.0); MONOCYTES 1.7 %; MPV 7.7 fl. (7.2-11.1); NUCLEATED RBCS 1 /100WBC; PLATELET COUNT* 324 thou/uL (150-400); POLYS 96.1 %; RBC 4.49 mil/uL (4.50-6.00); RDW-CV 16.2 % (10.5-14.5); WBC 12.9 thou/uL (4.0-11.0)
[2018-04-14 04:53] LABS: ALBUMIN 2.5 g/dL (3.4-5.0); ALKALINE PHOSPHATASE 109 U/L (46-116); ANION GAP < 0 mmol/L (7-16); BUN 15 mg/dL (7-18); CALCIUM 8.3 mg/dL (8.5-10.1); CHLORIDE 93 mmol/L (98-107); CO2 44 mmol/L (21-32); CREATININE 0.7 mg/dL (0.6-1.3); GLUCOSE 200 mg/dL (70-99); POTASSIUM 4.8 mmol/L (3.5-5.1); SGOT 45 U/L (15-37); SGPT 112 U/L (30-65); SODIUM 136 mmol/L (136-145); TOTAL BILIRUBIN 0.5 mg/dL (<0.1-1.0)
[2018-04-14 08:00] VITALS: BP 144/86
[2018-04-14 08:58] LABS: BE 14.6 mmol/L (-2 to +3); PO2 82.2 mmHg (75.0-100.0); pH 7.349 (7.340-7.450)
[2018-04-14 09:06] LABS: HCO3 44.2 mmol/L (22.0-26.0); PCO2 82.1 mmHg (35.0-45.0)
--- NOTE | 2018-04-14 11:32 | NUR ---
Spoke with Dr Jimenes, plan dc home tomorrow with HH.
--- NOTE | 2018-04-14 11:57 | NUR ---
DEPUTY CORONER SPOKE TO THE PATIENT'S SISTER DEENA TO DISCUSS DISCHARGE PLANNING NEEDS AND HH AT D/C. PATIENT'S SISTER REQUEST HH WITH [facility]. D/C [employer]S SALESPERSON SPOKE TO INTAKE WITH [facility] TO INFORM OF THE REFERRAL AND FAXED THE PATIENT'S FACESHEET, AND H&P. INTAKE WITH [facility] TO RETURN CALL TO INFORM OF ACCEPTANCE OF THE PATIENT. CM WILL REMAIN AVAILABLE TO ASSIST AND FOLLOW NEEDED.
[2018-04-14 12:00] VITALS: BP 145/90
--- NOTE | 2018-04-14 15:07 | NUR ---
PT ADMITS TO CRACK COCAINE USE "ABOUT MONTHLY". REPORTS HE HASNT USED IN ABOUT A WEEK. DR DUMONT AND ALBERT NOTIFIED
[2018-04-14 16:48] VITALS: BP 149/88
--- NOTE | 2018-04-14 16:54 | NUR ---
PT UP IN ROOM WITH STEADY GAIT. PT VOIDS PER URINAL WITH OCASSIONAL INCONTINENCE. PT DENIES CP OR SOA. PT TOLERATING PO WELL. PLAN FOR STRESS TEST IN AM
[2018-04-14 20:00] VITALS: BP 125/73
[2018-04-15] VITALS: BP 122/72
[2018-04-15 04:00] VITALS: BP 139/89
[2018-04-15 05:21] LABS: ABSOLUTE LYMPHOCYTES 0.3 thou/uL (0.8-5.3); ABSOLUTE MONOCYTES 0.2 thou/uL (0.0-1.2); ABSOLUTE NEUTROPHILS 9.9 thou/uL (1.6-8.1); HEMOGLOBIN 12.9 gm/dL (14.0-18.0); MCH 27.4 pg (26.0-34.0); MCHC 31.5 g/dL (28.0-37.0); MONOCYTES 1.6 %; MPV 7.5 fl. (7.2-11.1); NUCLEATED RBCS 0 /100WBC; PLATELET COUNT* 313 thou/uL (150-400); POLYS 95.4 %; RBC 4.72 mil/uL (4.50-6.00); RDW-CV 16.1 % (10.5-14.5); WBC 10.4 thou/uL (4.0-11.0)
[2018-04-15 05:35] LABS: PREALBUMIN 25.9 mg/dL (18.0-35.7)
[2018-04-15 05:38] LABS: ALBUMIN 2.5 g/dL (3.4-5.0); ALKALINE PHOSPHATASE 90 U/L (46-116); BUN 17 mg/dL (7-18); CALCIUM 8.3 mg/dL (8.5-10.1); CHLORIDE 96 mmol/L (98-107); CREATININE 0.7 mg/dL (0.6-1.3); GLUCOSE 143 mg/dL (70-99); POTASSIUM 4.7 mmol/L (3.5-5.1); SGOT 29 U/L (15-37); SGPT 93 U/L (30-65); SODIUM 139 mmol/L (136-145); TOTAL BILIRUBIN 0.7 mg/dL (<0.1-1.0); TOTAL PROTEIN 5.9 g/dL (6.4-8.2)
[2018-04-15 05:42] LABS: CO2 > 45 mmol/L (21-32)
--- NOTE | 2018-04-15 06:48 | NUR ---
PT CARE ASSUMED AT 1930. PT ALERT AND ORIENTED X4. SAT MAINTAINED IN 2L NC, 93%. BIPAP HS ON AND OFF PT REFUSED, DR KNOWS ABOUT THIS. CALL LIGHT WITHIN REACH AND FALL PRECAUTIONS MAINTAINED. PT IS IMPLULSIVE, SAT ON THE CHAIR FOR SOMETIME IN THE NIGHT, CHAIR ALARM ON. NPO FOR STRESS TEST. CO2 >45, NOTIFIED, HAVENT RECIEVED BACK THE ORDER. WILL CONTINUE TO MONITOR.
--- NOTE | 2018-04-15 07:15 | NUR ---
CHANGE OF SHIFT, BEDSIDE REPORT GIVEN PATIENT SEEN IN BED ASLEEP ASSUMED PATIENT CARE
--- NOTE | 2018-04-15 07:42 | CON ---
[address] [address] CONSULTATION Name: HUAN ABERNATHY Room: [address] IN M.R.#: [id number] Admission: 04/10/18 Attend Phys: Josué Jimenes MD Discharge: Date of : 50 Report #: [id number] THIS REPORT FOR: //name// CC: Josué Jimenes [facility] physician/PCP TYPE OF REPORT: Cardiology consultation. INDICATION: Abnormal echocardiogram and EKG. HISTORY OF PRESENT ILLNESS: The patient is a 67-year-old gentleman admitted to the hospital with respiratory failure. Workup included an echocardiogram that suggests inferior wall motion abnormality consistent with prior infarct. Certainly, his EKG shows Q-waves in the inferior leads as well to substantiate the possible history of myocardial infarction. The patient denies any chest pain. He denies any history of myocardial infarction. He is without cardiac complaint at this time. The patient smokes a pack of cigarettes daily. He reports smoking cocaine in the recent past. At the time of interview, he was without chest pain. He was not having any shortness of breath. He had no other cardiac complaint. PAST MEDICAL HISTORY: 1. COPD. 2. Heart failure. 3. GERD. 4. Schizophrenia. 5. Chronic hip pain. FAMILY HISTORY: Noncontributory. SOCIAL HISTORY: The patient's smokes a pack of cigarettes daily. Reports history of cocaine use in the past. REVIEW OF SYSTEMS: A 14-point review of systems is positive for generalized weakness, cough productive of yellow sputum, COPD, dyspnea, schizophrenia and he wears glasses without acute visual loss. ALLERGIES: None documented. HOME MEDICATIONS: Albuterol 2 puffs q. 6 hours p.r.n., [place] 7.5/325 q. 4 hours p.r.n., oxygen as directed and Invega Sustenna injection monthly. PHYSICAL EXAMINATION: VITAL SIGNS: Stable. Blood pressure 145/90 and pulse 92 and regular. GENERAL: This is a gentleman who is in no distress. HEENT: Head is normocephalic and atraumatic. [place] [address] CONSULTATION Name: HUAN ABERNATHY Room: [address] IN [facility]#: [id number] Admission: 04/10/18 Attend Phys: Josué Jimenes MD Discharge: Date of : 50 Report #: [id number] Mucous membranes are moist. NECK: Shows no jugular venous distention. CHEST: Reveals clear lung farias. CARDIOVASCULAR: Reveals a regular rhythm, normal S1 and S2. I do not appreciate gallop or murmur. ABDOMEN: Reveals normal bowel sounds. The abdomen is soft and nontender. EXTREMITIES: Shows no edema. Peripheral pulses 2+ and easily palpable. RADIOLOGICAL DATA: EKG shows sinus rhythm with inferior Q-waves. Her echocardiogram shows EF of 35% with inferior wall akinesis. LABORATORY DATA: Labs are reviewed. Troponin less than 0.06 on multiple occasions. NT-pro-BNP is 1119. IMPRESSION AND RECOMMENDATIONS: 1. Findings to suggest possible old inferior infarct. I would recommend a noninvasive stress testing at this time. Further intervention will be pending the results of that study and only be considered if you are with high risk. 2. Probable coronary artery disease. Recommend check and obtain fasting lipid profile and treat accordingly. We would start daily aspirin. 3. Smoking. Cessation obviously recommended. I doubt the patient will consider cessation. <ELECTRONICALLY SIGNED> By: Keyshawn Watts MD, FACC 04/15/18 0742 [id number] [id number] Watts MD, FACC /nt
[2018-04-15 08:00] VITALS: BP 147/52
[2018-04-15 08:29] VITALS: BP 141/82
--- NOTE | 2018-04-15 10:12 | NUR ---
PLASTIC SURGERY COORDINATOR FAXED INITIAL REFERRAL TO JAMIE WITH [facility] FOR POSSIBLE TRILIOGY. CM WILL REMAIN AVIALABLE TO ASSIST AND FOLLOW NEEDED.
--- NOTE | 2018-04-15 14:07 | CARDNUC ---
[place] [address] CARDIAC NUCLEAR IMAGING REPORT Name: HUAN ABERNATHY Room: [address] IN [facility]#: [id number] Admission: 04/10/18 Attend Phys: Josué Jimenes, Discharge: Date of : 50 Date of Service: 04/15/18 1407 Report #: [id number] THIS REPORT FOR: //name// APPROVED REPORT Imaging Protocol: Rest Tc-99m/Stress Tc-99m 1 day Study performed: 04/14/2018 15:19:00 Indication: abnormal echo Patient Location: In-Patient Room #: 200 Stress Tech: Kathie Green Stress Nurse: Lenora Mccurdy RN NM Tech:BINH Baez Ht: 5 ft 11 in Wt: 188 lbs BSA: 2.05 m2 BMI: 26.21 Medical History Medical History: copd, chf Medications: carvedilol, lisinopril,enoxaparin Allergies: nkda Cardiac Risk Factors: age, tobacco Previous Cardiac Procedures: none Exercise History: Sedentary Meds Held (24 hrs): cavedilol Resting Data Rest SPECT myocardial perfusion imaging was performed in supine position 30 minutes following the intravenous injection of 11.3 mCi of Tc-99m Sestamibi. Time of rest injection: 1005 Date: 04/15/2018 Time of rest imagin The images were gated to evaluate regional wall motion and calculate left ventricular ejection fraction. Administration Route: IV Administration Site: Left Hand Pharmacologic Stress Pharmacologic stress test was performed by injecting Regadenoson 0.4 mg IV push over 10-15 seconds immediately followed by the intravenous injection of 32.8 mCi of Tc-99m Sestamibi. Time of stress injection: 1135 Time of stress imagin Administration Route: [place] [address] CARDIAC NUCLEAR IMAGING REPORT Name: HAUN ABERNATHY Room: [address]#: [id number] Admission: 04/10/18 Attend Phys: Josué Jimenes, Discharge: Date of : 50 Date of Service: 04/15/18 1407 Report #: [id number] Administration Site: Left Hand Gated Stress SPECT was performed 40 minutes after stress injection. The images were gated to evaluate regional wall motion and calculate left ventricular ejection fraction. Stress Test Details Stress Test: Pharmacologic stress testing performed using 0.4 mg of regadenoson per 5 mL given IV over 10 seconds. Reason for pharmacologic stress test: physical limitation. HR Max Heart Rate (APMHR): 153 bpm Resting HR: 87 bpm Target HR (85% APMHR): 130 bpm Max HR Achieved: 107 bpm % of APMHR: 69 Recovery HR: 99 bpm BP Resting BP: 133/88 mmHg Max BP: 130/77 mmHg Recovery BP: 123/77 mmHg ECG Resting ECG: Sinus Rhythm Stress ECG: Sinus Tachycardia ST Change: None Arrhythmia: None Recovery ECG: Sinus Rhythm Recovery ST Change: None Recovery Arrhythmia: None Clinical Reason for Termination: Completed protocol The patient had no significant symptoms with Lexiscan infusion. Nurse Comments pt in weakened condition. unable to stand unassisted Stress ECG Conclusion The baseline 12-lead EKG show sinus rhythm without significant ST or T wave abnormality. EKGs obtained during and post Lexiscan stress show sinus rhythm and sinus tachycardia with no significant ST or T wave changes when compared to baseline. There were no stress-induced arrhythmias[place] [address] CARDIAC NUCLEAR IMAGING REPORT Name: HUAN ABERNATHY Room: [address] IN [facility].#: [id number] Admission: 04/10/18 Attend Phys: Josué Jimenes, Discharge: Date of : 50 Date of Service: 04/15/18 1407 Report #: [id number] Study: Good Artifact: No artifact Study Data At rest, the left ventricular ejection fraction was 19%.. Post stress, the left ventricular ejection was 24%.. TID = 0.94. Perfusion There is a large in size severe in intensity defect fixed involving the inferior inferoseptal and inferolateral loza. No other significant defects were identified at rest or post Lexiscan stress. Wall Motion Normal left ventricular wall motion. There is global hypokinesis with akinesis of the entire inferior wall and portions of the inferolateral and inferoseptal wall. Left ventricle is mildly dilated. Nuclear Conclusion ECG Findings: negative for ischemia Clinical Findings: negative for ischemia Nuclear Findings: negative for ischemia Exercise Capacity: not assessed Left Ventricular Function: abnormal Myocardial perfusion images show a defect involving the entire inferior and portions of the inferolateral and inferoseptal wall on both rest and stress images consistent with prior infarct. No reversible defects were identified. There is severe LV systolic dysfunction as outlined above. This is a high risk study based on severe LV systolic dysfunction. <Conclusion> The baseline 12-lead EKG show sinus rhythm without significant ST or T wave abnormality. EKGs obtained during and post Lexiscan stress show sinus rhythm and sinus tachycardia with no significant ST or T wave changes when compared to baseline. There were no stress-induced arrhythmias. <ELECTRONICALLY SIGNED> By: Keyshawn Watts MD, FACC 04/15/18 1407 140 140 Keyshawn Watts MD, FACC /INF
--- NOTE | 2018-04-15 14:24 | NUR ---
Trilogy to be delivered today. Anticipate dc to home tomorrow.
[2018-04-15 15:44] VITALS: BP 114/71
[2018-04-15 20:00] VITALS: BP 93/59
[2018-04-16] VITALS: BP 98/65
[2018-04-16 04:00] VITALS: BP 116/68
--- NOTE | 2018-04-16 05:48 | NUR ---
PT CARE ASSUMED AT 1930. SAT MAINTAINED IN 2L NC. ALERT AND ORIENTED X 4. CALL LIGHT WITHIN REACH. FALL PRECAUTIONS MAINTAINED. UP WITH STANDBY ASSIST. PT IS NON COMPLIANT WITH BIPAP, KNOWS ABOUT THIS. WILL CONTINUE TO MONITOR.
--- NOTE | 2018-04-16 07:20 | NUR ---
CHANGE OF SHIFT BEDSIDE REPORT GIVEN PATIENT SEEN AT BEDSIDE, IN BED ASLEEP BED ALARM ON ASSUMED PATIENT CARE
[2018-04-16 08:00] VITALS: BP 134/87
[2018-04-16] MEDS ORDERED: PRINIVIL5 MG PO (11:09)
[2018-04-16] MEDS ORDERED: LEVAQUIN 750 M750 MG PO (11:09)
[2018-04-16] MEDS ORDERED: PREDNISONE 20 M20 MG PO (11:09)
[2018-04-16] MEDS ORDERED: IPRAT-ALBUT 0.5-3 ML INH (11:09)
[2018-04-16] MEDS ORDERED: CARVEDILOL3.125 MG PO (11:09)
[2018-04-16 12:16] VITALS: BP 134/87
--- NOTE | 2018-04-16 12:53 | NUR ---
Received order to arrange home health. Faxed home health orders along with discharge summary to [facility] per previous CM note. No other needs identified.
--- NOTE | 2018-04-16 13:00 | NUR ---
PATIENT DISCHARGED TO HOME WITH H/H ALL DC INSTRUCTONS GIVEN, ACKNOWLEDGED, AND SIGNED COPIES GIVEN IV AND HEART MONITOR REMOVED PERSONAL BELONGINGS RETURNED EDUCATION GIVEN TO PATIENT AND SISTER DEENA WHOM HE LIVES WITH ASSISTED OUT VIA WC TO WAITING CAR
--- NOTE | 2018-04-20 11:40 | NUR ---
DPOA paperwork completed, Pt appointed his sister. Copy sent to medical records
== END 2018-04-16 13:00 | disposition home health service (06) | DRG 177 ==
LOC: M.ERS 18:06 → M.2W 20:02 → M.TBA-ER 20:02 → M.2W 20:25
PROVIDERS: Emergency Medicine Emergency Medical Services; Internal Medicine; Internal Medicine Pulmonary Disease; ADMIT Internal Medicine
PROC: 5A09357 Assistance with Respiratory Ventilation, Less than 24 Consecutive Hours, Continuous Positive Airway Pressure (ICD-10-PCS; principal; 2018-04-10)
PROC: 5A09357 Assistance with Respiratory Ventilation, Less than 24 Consecutive Hours, Continuous Positive Airway Pressure (ICD-10-PCS; 2018-04-11)
PROC: 5A09457 Assistance with Respiratory Ventilation, 24-96 Consecutive Hours, Continuous Positive Airway Pressure (ICD-10-PCS; 2018-04-12)
PROC: 5A09357 Assistance with Respiratory Ventilation, Less than 24 Consecutive Hours, Continuous Positive Airway Pressure (ICD-10-PCS; 2018-04-13)
PROC: 5A09357 Assistance with Respiratory Ventilation, Less than 24 Consecutive Hours, Continuous Positive Airway Pressure (ICD-10-PCS; 2018-04-14)
DX: J69.0 Pneumonitis due to inhalation of food and vomit (principal); G92 Toxic encephalopathy; J96.21 Acute and chronic respiratory failure with hypoxia; J96.22 Acute and chronic respiratory failure with hypercapnia; I50.43 Acute on chronic combined systolic (congestive) and diastolic (congestive) heart failure; J44.1 Chronic obstructive pulmonary disease with (acute) exacerbation; F11.20 Opioid dependence, uncomplicated; E87.1 Hypo-osmolality and hyponatremia; T58.91XA Toxic effect of carbon monoxide from unspecified source, accidental (unintentional), initial encounter; G89.29 Other chronic pain; K21.9 Gastro-esophageal reflux disease without esophagitis; F20.9 Schizophrenia, unspecified; I25.5 Ischemic cardiomyopathy; R91.1 Solitary pulmonary nodule; M25.559 Pain in unspecified hip; F17.210 Nicotine dependence, cigarettes, uncomplicated; Z91.19 Patient's noncompliance with other medical treatment and regimen; Y92.89 Other specified places as the place of occurrence of the external cause; Z79.899 Other long term (current) drug therapy

== ENCOUNTER 2018-05-07 06:55 | Inpatient (IN) | payer MEDICARE, MEDICAID ==
[~2018-05-07] VITALS: Ht 180.3 cm; Wt 76.7 kg
[~2018-05-07 06:55] MED LIST changes: +CARVEDILOL3.125 MG PO; +IPRAT-ALBUT 0.5-3 ML INH; +LEVAQUIN 750 M750 MG PO; +NORCO 7.5-3251 EACH PO; +PRINIVIL5 MG PO
[2018-05-07 06:56] VITALS: BP 115/70
[2018-05-07] MEDS ORDERED: SYMBICORT160 MCG/4. INH (07:02)
[2018-05-07 07:30] LABS: ABSOLUTE EOSINOPHILS 0.1 thou/uL (0.0-0.7); ABSOLUTE LYMPHOCYTES 0.8 thou/uL (0.8-5.3); ABSOLUTE MONOCYTES 0.5 thou/uL (0.0-1.2); ABSOLUTE NEUTROPHILS 6.2 thou/uL (1.6-8.1); BASOPHILS 0.6 %; EOSINOPHILS 1.9 %; HEMATOCRIT 45.6 % (42.0-52.0); HEMOGLOBIN 14.2 gm/dL (14.0-18.0); LYMPHOCYTES 10.2 %; MCH 27.3 pg (26.0-34.0); MCHC 31.2 g/dL (28.0-37.0); MCV 87.4 fL (80.0-100.0); MONOCYTES 6.3 %; MPV 8.6 fl. (7.2-11.1); NUCLEATED RBCS 0 /100WBC; PLATELET COUNT* 193 thou/uL (150-400); RBC 5.22 mil/uL (4.50-6.00); RDW-CV 19.2 % (10.5-14.5); WBC 7.6 thou/uL (4.0-11.0)
[2018-05-07 07:35] LABS: CALCIUM 8.3 mg/dL (8.5-10.1); CREATININE 0.9 mg/dL (0.6-1.3); POTASSIUM 3.9 mmol/L (3.5-5.1)
[2018-05-07 07:42] LABS: ALBUMIN 3.2 g/dL (3.4-5.0); MAGNESIUM 1.7 mg/dL (1.8-2.4); TOTAL BILIRUBIN 0.9 mg/dL (<0.1-1.0); TOTAL PROTEIN 6.7 g/dL (6.4-8.2)
[2018-05-07 07:45] LABS: TROPONIN-I LEVEL 0.85 ng/mL (<0.06)
[2018-05-07 08:01] LABS: INFLUENZA A ANTIGEN None Detected (None Detect); INFLUENZA B ANTIGEN None Detected (None Detect)
[2018-05-07 10:47] VITALS: BP 127/89
[2018-05-07 11:39] VITALS: BP 133/83
[2018-05-07] MEDS ORDERED: INVEGA SUS39 MG/0.25 IM (12:52)
--- NOTE | 2018-05-07 14:41 | CON ---
[address] [address] CONSULTATION Name: HUAN PALOMO Room: [address] IN M.R.#: [id number] Admission: 05/07/18 Attend Phys: Ilene Palomo MD Discharge: Date of : 50 Report #: [id number] THIS REPORT FOR: //name// CC: ELVIE physician/PCP Ilene Palomo DATE OF SERVICE: 05/07/2018 HISTORY OF PRESENT ILLNESS: I was asked by Dr. Ilene Palomo and Dr. Bowman in the ER to see this 67-year-old white male in cardiology consultation for evaluation and treatment of chest pain with minimally elevated troponin. His troponin initially was 0.85, subsequently one 3-1/2 hours later was 0.77. Unfortunately, this man has schizophrenia and is on anti-schizophrenic drug that he gets as an injection once a month. That drug is a Haldol like drug called Invega that is long-acting and its paliperidone. It is injectable. He did have an injection about 2 weeks ago. He does have coronary artery disease. He is status post an inferior myocardial infarction on his EKG. He does have an ischemic cardiomyopathy. An echo that I believe was from last month demonstrated a left ventricular ejection fraction of 35%. There was also grade 1 diastolic dysfunction. There was inferobasilar and high lateral hypokinesis that was disproportionate to the rest of the ventricle. He is known to have a history of congestive heart failure. He is on carvedilol and lisinopril for that, but not on a diuretic. He has difficulty describing his chest pain. He described it to my nurse as a substernal chest pressure. It was in the middle of his chest. To me, he described it as a sharp chest pain on the left lateral side of his chest. It did not seem to be worse with activity or better with rest. It did occur at rest though. He has a lot of shortness of breath, but it does not seem to be necessarily associated with the pain. There was no nausea, vomiting or diaphoresis. There was no relationship to food. He did not try nitroglycerin. There was no radiation of the pain. He does have chronic dyspnea on exertion as well as orthopnea and PND and edema. He did complain of having a lot of edema recently, although when I examined him, his edema was only trace to 1+ at most. He has not had any syncope. Coronary risk factors include smoking. He still smokes a pack a day. I told him in no uncertain terms today to stop smoking. He denies hypercholesterolemia or diabetes or high blood pressure. There is no family history of coronary artery disease. He has not had renal disease or peripheral vascular disease, claudication, TIAs or CVAs. Carotid disease or open or nonhealing wounds. He denies allergies. When he was here last month for chest pain, he got a nuclear stress test, which showed a large inferior and lateral infarct without kavya-infarction ischemia with severe left ventricular systolic dysfunction. His ejection fraction was approximately 35 as it was on the echo. MEDICATIONS: Include the above injectable drug. Additionally, he is on albuterol 2 puffs q.6h. p.r.n. He is on Symbicort 160 mcg daily, carvedilol 3.125 mg b.i.d., DuoNeb q.4h. Lisinopril 2.5 mg daily and prednisone 60 mg [facility] [address] [place] [address] CONSULTATION Name: HUAN PALOMO Room: [address] IN [facility]#: [id number] Admission: 05/07/18 Attend Phys: Ilene Palomo MD Discharge: Date of : 50 Report #: [id number]. SOCIAL HISTORY: He is . Smokes a pack a day. Again, he was told to stop smoking. Has only an occasional alcoholic beverage. FAMILY HISTORY: He does not really know his family history, although he does have a twin brother who last year, who also had schizophrenia. REVIEW OF SYSTEMS: Positive for weakness, cough, sputum production, chest discomfort, shortness of breath, exercise, shortness of breath lying down, waking up short of breath, extremity edema, wearing glasses and decreased hearing. Otherwise, his review of systems is negative for some 40 different complaints in 14 different system categories including central nervous system, general, respiratory, cardiovascular, endocrine, gastrointestinal, genitourinary, hematologic, lymphatic, allergic, immunologic, psychiatric, musculoskeletal, skin, eyes, ears, nose, mouth, and throat. PHYSICAL EXAMINATION: GENERAL: He presents as a well-developed, well-nourished, white male who is somewhat disheveled, and in no acute distress. He has some degree of cognitive impairment. VITAL SIGNS: His pulse was 75 and regular, blood pressure is 133/83, respirations 18 and regular, and temperature is 97.9. HEENT: His head was atraumatic. Eyes clear. NECK: Supple. There is no jugular venous distention or hepatojugular reflux. Thyroid is not enlarged. There is no adenopathy. SKIN: Warm and dry. Mucous membranes moist. LUNGS: Clear to auscultation and percussion. His breath sounds overall are decreased and his expiratory phase is prolonged bilaterally. HEART: Revealed normal first and second heart sound. There is soft S4. There is no S3. There are no murmurs, rubs, thrills, heaves or gallops. PMI is nondisplaced. ABDOMEN: Soft, flat, nontender, no palpable masses and no organomegaly. EXTREMITIES: Reveal no cyanosis, clubbing or edema. LABORATORY DATA: His EKG shows normal sinus rhythm and there is an apparently old inferior myocardial infarction. Chest x-ray showed chronic interstitial lung changes. No consolidating infiltrates, pneumothorax or significant pleural effusion. His BNP was 4026. IMPRESSION: 1. Chest pain, which could well represent a non-ST segment elevation myocardial infarction. 2. Coronary artery disease. 3. Status post inferior myocardial infarction. 4. Congestive heart failure, [place] [address] CONSULTATION Name: HUAN PALOMO Room: [address] IN [facility]#: [id number] Admission: 05/07/18 Attend Phys: Ilene Palomo MD Discharge: Date of : 50 Report #: [id number] 5. Ischemic cardiomyopathy. 6. Chronic obstructive pulmonary disease with exacerbation. Note, he is O2 dependent. Usually requires 4 liters of oxygen, but does not wear it at home all the time. 7. Smoking. 8. Elevated troponin. 9. Schizophrenia. RECOMMENDATION: I would give him some diuretic and treat him as if this is an acute non-ST segment elevation GA in the short run. I continue his beta harish and start him on aspirin and I would strongly consider cardiac catheterization and coronary angiography. Thank you very much for asking me to see the patient. If there are any questions, please feel free to contact me. <ELECTRONICALLY SIGNED> By: Ashley Delgado MD, FACC 05/07/18 1441 [id number] [id number]. Puneet Delgado MD, FACC /nt
[2018-05-07 16:00] VITALS: BP 126/88
[2018-05-08] VITALS: BP 102/69
[2018-05-08 04:00] VITALS: BP 119/77
[2018-05-08 05:17] LABS: HEMATOCRIT 41.5 % (42.0-52.0); MCH 27.3 pg (26.0-34.0); MCHC 31.4 g/dL (28.0-37.0); MCV 87.2 fL (80.0-100.0); MPV 8.5 fl. (7.2-11.1); RBC 4.76 mil/uL (4.50-6.00); WBC 7.5 thou/uL (4.0-11.0)
[2018-05-08 06:30] LABS: CALCIUM 8.4 mg/dL (8.5-10.1); CREATININE 0.8 mg/dL (0.6-1.3); MAGNESIUM 1.7 mg/dL (1.8-2.4); POTASSIUM 4.6 mmol/L (3.5-5.1); TROPONIN-I LEVEL 0.5 ng/mL (<0.06)
[2018-05-08 07:55] VITALS: BP 124/80
[2018-05-08 12:00] VITALS: BP 114/68
[2018-05-08 16:00] VITALS: BP 88/52
[2018-05-09] VITALS (18 sets, daily range): BP systolic 107–138; BP diastolic 57–84
[2018-05-09 05:23] LABS: APTT 25.2 Seconds (25.0-31.3); INR 1.1; PROTIME 11.2 Seconds (9.20-11.50)
[2018-05-09 05:46] LABS: ANION GAP 0 mmol/L (7-16); BUN 17 mg/dL (7-18); CALCIUM 8.1 mg/dL (8.5-10.1); CHLORIDE 97 mmol/L (98-107); CHOLESTEROL 178 mg/dL (<200); CO2 43 mmol/L (21-32); CREATININE 0.8 mg/dL (0.6-1.3); GLUCOSE 112 mg/dL (70-99); HDL CHOLESTEROL 48 mg/dL (>40); LDL CHOLESTEROL 122 mg/dL (<100); MAGNESIUM 1.8 mg/dL (1.8-2.4); NT-PRO BRAIN NAT PEPTIDE 1950 pg/mL (<300); POTASSIUM 5.1 mmol/L (3.5-5.1); SODIUM 140 mmol/L (136-145); TC:HDL 3.7 Ratio (Not establshd); TRIGLYCERIDE 43 mg/dL (<150); VLDL 9 mg/dL (<40)
[2018-05-09 05:50] LABS: SERUM ASSESSMENT Clear
--- NOTE | 2018-05-09 10:17 | EKG ---
[place] [address] ELECTROCARDIOGRAM REPORT Name: HUAN PALOMO Room: [address] ADM IN ..#: [id number] Admission: 05/07/18 Attend Phys: Ilene Palomo MD Discharge: Date of : 50 Report #: [id number] THIS REPORT FOR: //name// [facility] ED Test Date: 2018-05-07 Test Time: 07:00:15 Pat Name: HUAN PALOMO Department: Room: [facility] Gender: Commodity Management Specialist: RAMON Avalos : 1950 Requested By: Nicolas Bowman Order Number: [id number] MD: Emerson Ward Measurements Intervals [place] Rate: 102 P: 76 [place]: 145 QRS: 143 QRSD: 103 T: -46 QT: 351 QTc: 458 Interpretive Statements Sinus tachycardia Inferior infarct, age indeterminate Compared to ECG 04/10/2018 18:22:01 Sinus rhythm no longer present Myocardial infarct finding still present Electronically Signed On 05-09-2018 10:17:25 ACADEMIC COORDINATOR by Emerson Ward [email or web address] <ELECTRONICALLY SIGNED> By: Emerson Ward MD, [facility] 05/09/18 1017 0700 0700 Emerson Ward MD, [facility] /EPI
--- NOTE | 2018-05-09 13:33 | 2DMMODE ---
[place] [address] 2 D/M-MODE ECHOCARDIOGRAM Name: HUAN PALOMO Room: [address] IN [facility]#: [id number] Admission: 05/07/18 Attend Phys: Ilene Palomo, Discharge: Date of : 50 Date of Service: 05/09/18 1332 Report #: [id number] THIS REPORT FOR: //name// APPROVED REPORT Study performed: 05/09/2018 11:19:54 EXAM: Comprehensive 2D, Doppler, and color-flow Echocardiogram Patient Location: In-Patient Room #: [facility] BSA: 2.02 HR: 80 bpm BP: 131/80 mmHg Other Information Study Quality: Good Indications Elevated Troponin 2D Dimensions IVSd: 9.67 (7-11mm) LVOT Diam: 20.37 (18-24mm) LVDd: 61.59 mm PWd: 10.10 (7-11mm) Ascending Ao: 29.17 (22-36mm) LVDs: 51.81 (25-40mm) Aortic Root: 23.58 mm Volumes Left Atrial Volume (Systole) LA ESV Index: 25.10 mL/m2 Aortic Valve AoV Peak Jonnie.: 1.11 m/s AO Peak Gr.: 4.89 mmHg LVOT Max P.55 mmHg AO Mean Gr.: 2.97 mmHg LVOT Mean P.34 mmHg LVOT Max V: 0.80 m/s AO V2 VTI: 22.58 cm LVOT Mean V: 0.54 m/s MAC (VTI): 2.26 cm2 LVOT V1 VTI: 15.66 cm Mitral Valve E/A Ratio: 0.61 MV Decel. Time: 145.04 ms MV E Max Jonnie.: 0.59 m/s MV PHT: 42.06 [place] [address] 2 D/M-MODE ECHOCARDIOGRAM Name: HUAN PALOMO Room: [address] IN .R.#: [id number] Admission: 05/07/18 Attend Phys: Ilene Palomo, Discharge: Date of : 50 Date of Service: 05/09/18 1332 Report #: [id number] MVA (PHT): 5.23 cm2 TDI E/Lateral E': 6.56 E/Medial E': 9.83 Medial E' Jonnie.: 0.06 m/s Lateral E' Jonnie.: 0.09 m/s Pulmonary Valve PV Peak Jonine.: 0.79 m/s PV Peak Gr.: 2.51 mmHg Tricuspid Valve RAP Estimate: 10.00 mmHg TR Peak Gr.: 26.10 mmHg RVSP: 36.10 mmHg PA Pressure: 36.10 mmHg Left Ventricle The left ventricle is normal size. akinesis noted of the inferoposterior wall There is normal left ventricular wall thickness. Left ventricular systolic function is severely decreased. LVEF is 30-35%. Grade I - abnormal relaxation pattern. Right Ventricle The right ventricle is normal size. The right ventricular systolic function is normal. Atria The left atrium size is normal. The right atrium size is normal. Aortic Valve Aortic valve is mildly calcified. No aortic regurgitation is present. There is no aortic valvular stenosis. Mitral Valve The mitral valve is normal in structure. Mild mitral regurgitation. No evidence of mitral valve stenosis. Tricuspid Valve The tricuspid valve is normal in structure. There is trace tricuspid valve regurgitation noted. Pulmonic Valve Pulmonic valve is not well visualized. There is no pulmonic [place] [address] 2 D/M-MODE ECHOCARDIOGRAM Name: HUAN PALOMO Room: [address] IN [facility]#: [id number] Admission: 05/07/18 Attend Phys: Ilene Palomo, Discharge: Date of : 50 Date of Service: 05/09/18 1332 Report #: [id number] The aortic root is normal in size. IVC is dilated and collapses <50% with inspiration. Pericardium There is no pericardial effusion. <Conclusion> LVEF is 30-35%. akinesis noted of the inferoposterior wall Aortic valve is mildly calcified. Mild mitral regurgitation. <ELECTRONICALLY SIGNED> By: Emerson Ward MD, FACC 05/09/181331 31 31 Emerson Ward MD, FACC /INF
--- NOTE | 2018-05-09 18:01 | CARD ---
[address] [address] CARDIAC CATH REPORT Name: HUAN PALOMO Room: [address] IN [facility]#: [id number] Admission: 05/07/18 Attend Phys: Ilene Palomo MD Discharge: Date of : 50 Report #: [id number] THIS REPORT FOR: //name// APPROVED REPORT Study performed: 05/09/2018 12:11:41 Patient Details Patient Status: In-Patient Room #: The patient is a 67 year-old male Event Personnel Emerson Ward Plastic Mixer, Chris Duarte (R) Monitor, Corinne Alvarez RN Petroleum Geologist Procedures Performed Left Heart Cath w/or w/o Coronaries [id number] [facility] , Left Heart Catheterization Indication Abnormal ECG, Non-STEMI , Dyspnea, CardiomyopathyPositive stress test, Chest pain Risk Factors Tobacco History () Previous Procedures/Diagnoses Previous CHF Admission/Lab Medications/Medications given during procedure Heparin Unfract. Procedure Narrative The patient was brought electively to the Cardiac Catheterization Laboratory and was prepped and draped in a sterile manner. The right wrist was infiltrated with 1% Lidocaine subcutaneous anesthesia. A Slender Glidesheath sheath was inserted into the right radial artery. Coronary angiography was performed using coronary diagnostic catheters. The right coronary system was accessed and visualized with a JR4 catheter. The left coronary system was accessed and visualized with a JL4 catheter. The left ventricle was accessed and visualized with a Angled PIG catheter. Left ventricular/Aortic Valve gradient assessed via catheter pullback. Left ventriculogram was performed in PROCTOR projection. Closure device was deployed with a 6 Fr Vasc-Band Reg 24cm. The patient tolerated the procedure well and there were no [facility] [address] [place] [address] CARDIAC CATH REPORT Name: HUAN PALOMO Room: [address]#: [id number] Admission: 05/07/18 Attend Phys: Ilene Palomo MD Discharge: Date of : 50 Report #: [id number] complications associated with the procedure. There was no hematoma. Intraoperative Conscious Sedation No sedation given Fluoro Time: 1.7 minutes Dose: DAP 04745 cGycm2 517 mGy Contrast Type and Amount: Omnipaque 80 ml Coronary Angiography The patient's coronary anatomy is right dominant. Diagnostic Cath Left Main 0% stenosis LAD 60% stenosis after first diagonal branch, and 90% distal stenosis noted Diagonal 1 50% mid stenosis Diagonal 2 70% proximal stenosis Circumflex chronically occluded after first marginal branch and filled by collaterals Right Coronary chronically occluded proximally and filled by collaterals Left Ventriculography The left ventricular ejection fraction is estimated to be 15-20%. There is 1+ mitral insufficiency. Hemodynamics The aortic pressure is 123/72 mmHg with a mean of 89 mmHg. The left ventricular pressure is 120/20 mmHg with a mean of mmHg. The left ventricular end diastolic pressure is 24 mmHg. There was no gradient across the aortic valve upon pullback. Pullback from the left ventricle to the aorta revealed no gradient across the aortic valve. Conclusion 1. 60% stenosis of the mid lad and 90% stenosis of the apical lad 2. 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 [place] [address] CARDIAC CATH REPORT Name: HUAN PALOMO Room: [address] IN [facility].#: [id number] Admission: 05/07/18 Attend Phys: Ilene Palomo MD Discharge: Date of : 50 Report #: [id number] Recommendations Aggressive Medical Therapy <ELECTRONICALLY SIGNED> By: Emerson Ward MD, FACC 05/09/181800 00 180javier Ward MD, FACC /INF
[2018-05-10] VITALS: BP 106/59
[2018-05-10 04:00] VITALS: BP 115/69
[2018-05-10 05:04] LABS: ANION GAP < 0 mmol/L (7-16); BUN 21 mg/dL (7-18); CALCIUM 8.3 mg/dL (8.5-10.1); CHLORIDE 95 mmol/L (98-107); CO2 44 mmol/L (21-32); CREATININE 0.8 mg/dL (0.6-1.3); GLUCOSE 188 mg/dL (70-99); POTASSIUM 4.7 mmol/L (3.5-5.1); SODIUM 138 mmol/L (136-145)
[2018-05-10 08:06] VITALS: BP 120/79
[2018-05-10] MEDS ORDERED: ATORVASTATIN CA40 MG PO (11:25)
[2018-05-10] MEDS ORDERED: CIPRO500 MG PO (11:25)
[2018-05-10] MEDS ORDERED: SPIRONOLACTONE25 MG PO (11:25)
[2018-05-10] MEDS ORDERED: ASPIR 8181 MG PO (11:25)
[2018-05-10] MEDS ORDERED: PREDNISONE 20 M20 MG PO (11:25)
[2018-05-10] MEDS ORDERED: LISINOPRIL5 MG PO (11:25)
[2018-05-10] MEDS ORDERED: NITROGLYCERIN0.4 MG SUBLING (11:55)
[2018-05-10] MEDS ORDERED: LASIX 40 MG TAB40 M2 PO (11:56)
== END 2018-05-10 11:55 | disposition home health service (06) | DRG 280 ==
LOC: M.ERS 06:55 → M.2W 07:56 → M.TBA-ER 07:56 → M.2W 10:54
PROVIDERS: Emergency Medicine Emergency Medical Services; Internal Medicine; Internal Medicine Cardiovascular Disease; ADMIT Internal Medicine
DX: I21.4 Non-ST elevation (NSTEMI) myocardial infarction (principal); J96.21 Acute and chronic respiratory failure with hypoxia; I50.43 Acute on chronic combined systolic (congestive) and diastolic (congestive) heart failure; J44.1 Chronic obstructive pulmonary disease with (acute) exacerbation; I25.2 Old myocardial infarction; G89.29 Other chronic pain; M25.559 Pain in unspecified hip; I25.5 Ischemic cardiomyopathy; E78.00 Pure hypercholesterolemia, unspecified; F17.210 Nicotine dependence, cigarettes, uncomplicated; F20.9 Schizophrenia, unspecified; I25.10 Atherosclerotic heart disease of native coronary artery without angina pectoris; Z79.2 Long term (current) use of antibiotics; Z79.82 Long term (current) use of aspirin; Z79.899 Other long term (current) drug therapy; Z99.81 Dependence on supplemental oxygen; Z81.8 Family history of other mental and behavioral disorders; Z91.19 Patient's noncompliance with other medical treatment and regimen

== ENCOUNTER 2018-05-21 14:36 | Inpatient (IN) | payer MEDICARE, MEDICAID ==
[~2018-05-21] VITALS: Ht 180.3 cm; Wt 78.9 kg
[~2018-05-21 14:36] MED LIST changes: +ASPIR 8181 MG PO; +ATORVASTATIN CA40 MG PO; +CIPRO500 MG PO; +INVEGA SUS39 MG/0.25 IM; +LASIX 40 MG TAB40 M2 PO; +LISINOPRIL5 MG PO; +NITROGLYCERIN0.4 MG SUBLING; +SPIRONOLACTONE25 MG PO; +SYMBICORT160 MCG/4. INH
[2018-05-21 14:49] VITALS: BP 89/46
[2018-05-21 15:30] LABS: ABSOLUTE MONOCYTES 0.8 thou/uL (0.0-1.2); ABSOLUTE NEUTROPHILS 7.7 thou/uL (1.6-8.1); BASOPHILS 0.5 %; EOSINOPHILS 0.4 %; HEMOGLOBIN 13.2 gm/dL (14.0-18.0); LYMPHOCYTES 10.1 %; MCHC 30.8 g/dL (28.0-37.0); MCV 87.8 fL (80.0-100.0); MONOCYTES 8.3 %; MPV 8.2 fl. (7.2-11.1); NUCLEATED RBCS 1 /100WBC; PLATELET COUNT* 260 thou/uL (150-400); POLYS 80.7 %; RBC 4.89 mil/uL (4.50-6.00); RDW-CV 19.3 % (10.5-14.5); WBC 9.5 thou/uL (4.0-11.0)
[2018-05-21 15:51] LABS: POTASSIUM 4.3 mmol/L (3.5-5.1)
[2018-05-21 16:01] LABS: ALBUMIN 2.7 g/dL (3.4-5.0); TOTAL BILIRUBIN 0.6 mg/dL (<0.1-1.0); TOTAL PROTEIN 5.9 g/dL (6.4-8.2)
[2018-05-21 16:49] LABS: URINE BILIRUBIN NEGATIVE (Negative); URINE BLOOD NEGATIVE (Negative); URINE CLARITY CLEAR; URINE COLOR YELLOW; URINE GLUCOSE-RANDOM NEGATIVE (Negative); URINE KETONES NEGATIVE (Negative); URINE LEUKOCYTES-REFLEX NEGATIVE (Negative); URINE NITRITE-REFLEX NEGATIVE (Negative); URINE PROTEIN NEGATIVE (Negative); URINE UROBILINOGEN 0.2 E.U./dl (0.2-1.0)
[2018-05-21 18:28] VITALS: BP 113/72
[2018-05-21 20:00] VITALS: BP 113/72
[2018-05-22] VITALS: BP 103/63
[2018-05-22 04:00] VITALS: BP 96/59
[2018-05-22 08:45] VITALS: BP 94/62
[2018-05-22 12:00] VITALS: BP 94/62
--- NOTE | 2018-05-22 13:44 | EKG ---
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: [facility] : 1950 Requested By: Christine Colindres Order Number: [id number] MD: Emerson Ward Measurements Intervals [place] Rate: 78 P: 78 [place]: 156 QRS: 131 QRSD: 113 T: -57 QT: 467 QTc: 533 Interpretive Statements Sinus rhythm Inferior infarct, age indeterminate nonspecific t wave chagnes Compared to ECG 05/07/2018 07:00:15 Sinus tachycardia no longer present Myocardial infarct finding still present Electronically Signed On 05-22-2018 13:44:41 SCANNING CLERK by Emerson Ward [email or web address] <ELECTRONICALLY SIGNED> By: Emerson Ward MD, FAC 05/22/18 1344 1451 1451 Emerson Ward MD, [facility] /EPI
[2018-05-22 16:42] VITALS: BP 100/60
[2018-05-22 20:00] VITALS: BP 107/71
[2018-05-23] VITALS: BP 126/60; BP 98/58
[2018-05-23 04:00] VITALS: BP 107/73
[2018-05-23 05:24] LABS: HEMOGLOBIN 12.8 gm/dL (14.0-18.0); MCH 27.1 pg (26.0-34.0); MCHC 31.2 g/dL (28.0-37.0); MCV 86.8 fL (80.0-100.0); MPV 8.4 fl. (7.2-11.1); RBC 4.72 mil/uL (4.50-6.00); RDW-CV 18.3 % (10.5-14.5); WBC 12.2 thou/uL (4.0-11.0)
[2018-05-23 06:08] LABS: BUN 13 mg/dL (7-18); CALCIUM 8.4 mg/dL (8.5-10.1); CHLORIDE 93 mmol/L (98-107); CREATININE 0.8 mg/dL (0.6-1.3); GLUCOSE 140 mg/dL (70-99); MAGNESIUM 1.7 mg/dL (1.8-2.4); POTASSIUM 4.4 mmol/L (3.5-5.1); SODIUM 137 mmol/L (136-145); TROPONIN-I LEVEL 0.21 ng/mL (<0.06)
[2018-05-23 06:10] LABS: CO2 > 45 mmol/L (21-32)
[2018-05-23 09:47] VITALS: BP 116/65
[2018-05-23] MEDS ORDERED: PREDNISONE 20 M20 M1 PO (10:54)
[2018-05-23 11:49] VITALS: BP 116/65
[2018-05-23 12:21] VITALS: BP 116/65
[2018-05-23 12:32] VITALS: BP 116/65
== END 2018-05-23 14:37 | disposition home or self-care (01) | DRG 291 ==
LOC: M.ERS 14:36 → M.TBA-ER 16:12 → M.2W 16:12
PROVIDERS: Internal Medicine; Physician Assistant
PROC: 5A09357 Assistance with Respiratory Ventilation, Less than 24 Consecutive Hours, Continuous Positive Airway Pressure (ICD-10-PCS; principal; 2018-05-23)
DX: I50.33 Acute on chronic diastolic (congestive) heart failure (principal); J96.21 Acute and chronic respiratory failure with hypoxia; J44.1 Chronic obstructive pulmonary disease with (acute) exacerbation; F17.210 Nicotine dependence, cigarettes, uncomplicated; J40 Bronchitis, not specified as acute or chronic; N18.2 Chronic kidney disease, stage 2 (mild); G89.29 Other chronic pain; M25.559 Pain in unspecified hip; F20.9 Schizophrenia, unspecified; Z99.81 Dependence on supplemental oxygen; I25.2 Old myocardial infarction; Z79.51 Long term (current) use of inhaled steroids; Z79.82 Long term (current) use of aspirin; Z79.899 Other long term (current) drug therapy